=== PATIENT | male | born 1960 | race Caucasian/White ===

== ENCOUNTER 2022-03-18 13:21 | Emergency (ER) | payer BC, SELFPAY ==
[2022-03-18 13:24] VITALS: BP 169/88; PULSE 57; RESP 16; TEMP 36.5; O2SAT 98
--- NOTE | 2022-03-18 13:27 | ED.GENADUL_ITS ---
Discharge Plan Disposition Patient Disposition: HOME Condition: Improving Discharge Details Clinical Impression: Acute bronchitis, History of COPD Primary Care Provider: Payal,Local ED Provider: Christina Willard Home Meds and New Rx's Prescriptions: New prednisone 50 mg tablet 50 mg PO DAILY 5 Days Qty: 5 0RF Continued albuterol 90 mcg/actuation Aerosol 1 INHALATION PRN PRN amlodipine 5 mg Tablet 5 mg PO DAILY Discharge Instructions Instructions: Acute Bronchitis (ED), COPD (Chronic Obstructive Pulmonary Disease) (ED) Additional Instructions: Your symptoms could be due to a viral infection called bronchitis or could be due to an exacerbation of your chronic obstructive pulmonary disease. These are treated similarly with steroids and an albuterol inhaler to use as needed and directed for shortness of breath, cough or wheezing. A prescription for steroids has been sent electronically to your pharmacy to take as directed until finished. 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 Follow-up with your primary care doctor in 1 week. Return to the emergency department with any worsening or new concerning symptoms such as fever, worsening shortness of breath or any other concerns. Referrals: Isabella Ibarra MD [ [facility] STAFF PHYSICIAN] - Discharge Data Discharge Physician: Christina Willard Medical Decision Making 61-year-old male with a history of COPD and former smoker presents for cough, wheezing and shortness of breath today. Oxygen saturation 96 to 98% on room air. Patient is speaking in full sentences and appears comfortable and nontoxic without signs of respiratory distress. He has scattered wheezing throughout. Normal oropharynx. Patient presentation appears most likely consistent with acute bronchitis versus acute COPD exacerbation. Do not indication for lab work or imaging at this time. Patient states he is only here for a nebulizer treatment and does not want labs or imaging. We will give a dose of oral steroids. Patient reassessed after DuoNeb and states he feels significantly better and would like to go home. Oxygen saturation remains within normal limits. He is speaking in full sentences and demonstrates no signs of respiratory distress. A prescription for steroids sent electronically to his pharmacy. He was given an albuterol inhaler to go. He states he has daily inhaler prescription pickup tomorrow from his pharmacy. Patient given pulmonology follow-up information if needed. Advised to follow up with the primary care doctor for re-evaluation. Usual and customary return precautions given prior to discharge. Medical Records Medical records reviewed: Yes I reviewed the patient's medical records. HPI General Mode of arrival: ambulatory . Date/Time Provider Initiated Documentation: 03/18/22 13:22 . Limitations to Documentation: no limitations . Information obtained by: patient . HPI Narrative: Patient is a 61-year-old male with a history of COPD and former tobacco smoker presents with cough, shortness of breath and wheezing today. Patient states his symptoms are usually resolved with nebulizer treatment in the emergency department. Patient states he was on his wait in [place] in [place] for a breathing treatment. He states he uses 2 inhalers for his COPD daily but is unsure of the names. He states he has never seen a swatch paster. He states he is fully vaccinated for COVID and denies any recent known exposure to coronavirus. He denies fever, chest pain, sore throat, loss of sense of smell or taste, vomiting or diarrhea. Related Data Home Medications Medication Instructions Recorded Confirmed albuterol 90 mcg/actuation aerosol 1 inhalation PRN PRN 03/18/22 inhaler amlodipine 5 mg tablet 5 mg PO DAILY 03/18/22 03/18/22 prednisone 50 mg tablet 50 mg PO DAILY 5 days #5 tabs 03/18/22 Previous Rx's Medication Instructions Recorded prednisone 50 mg tablet 50 mg PO DAILY 5 days #5 tabs 03/18/22 Allergies Allergy/AdvReac Type Severity Reaction Status Date / Time No Known Allergies Allergy Unverified 03/18/22 13:31 General Stated Complaint: SOB CHAUNCEY: 3 Review of Systems All systems reviewed & are unremarkable except as noted in HPI and below Constitutional Constitutional: Denies chills, Denies excessive sweating, Denies fatigue, Denies fever(s), Denies weakness and Denies weight loss Eyes Eyes: Reports system reviewed and no additional complaints, except as documented and Denies blurry vision ENT Ears, Nose, Mouth, and Throat: Denies vertigo, Denies dizziness, Denies otalgia, Denies nasal congestion, Denies sore throat and Denies throat swelling Cardiovascular Cardiovascular: Denies chest pain, Denies syncope, Denies rapid heart rate and Reports dyspnea Respiratory Respiratory: Denies chest congestion, Reports cough, Denies pain on inspiration and Reports dyspnea Gastrointestinal Gastrointestinal: Denies abdominal pain, Denies diarrhea and Denies vomiting Genitourinary Genitourinary: Denies hematuria, Denies dysuria and Denies flank pain Musculoskeletal Musculoskeletal: Denies back pain and Denies joint swelling Integumentary/Breasts Skin/Breast: Denies lesions and Denies rash Neurologic Neurologic: Denies behavioral changes, Denies confusion, Denies vertigo, Denies dizziness, Denies syncope, Denies localized weakness and Denies weakness Psychiatric Psychiatric: Denies behavioral changes, Denies confusion and Denies depression Endocrine Endocrine: Denies excessive sweating and Denies fatigue Hematologic/Lymphatic Hematologic/Lymphatic: Denies easy bruising and Denies lymphadenopathy Allergic/Immunologic Allergic/Immunologic: Denies throat swelling PFSH All Active Problems (Updated 03/18/22 @ 14:10 by Christina Willard DO) Acute bronchitis (Acute) History of COPD (Acute) Medical History (Updated 03/18/22 @ 14:10 by Christina Willard DO) COPD (chronic obstructive pulmonary disease) HTN (hypertension) Kidney stones Surgical History (Updated 03/18/22 @ 13:54 by Christina Willard DO) Hx of lithotripsy Social History Smoking/Tobacco Use Status: Former Tobacco Use Smoking risk assessment performed?: Yes Alcohol Intake: former Substance use type: does not use Do you feel safe at home: Yes Do you feel safe in your relationship?: Yes Exam Const General: cooperative and healthy appearing Orientation: alert, awake and oriented x3 HENMT Head: normal to inspection Ears: hearing grossly normal bilaterally, external ears normal and TM's normal bilaterally General nose exam: external nose normal Face and sinus: normal facial exam Mouth: oral mucosae normal Teeth and gingiva: dentition normal Throat: posterior oropharynx normal Eyes General: appearance normal, both eyes and all related structures Eyelids: eyelids normal Pupils: PERRL EOM: EOM intact bilaterally Neck Neck: normal visual inspection Lymphatic: no lymphadenopathy noted Chest Chest: normal inspection of the chest Resp Effort & Inspection: normal respiratory effort and able to speak in complete sentences Auscultation: wheezes scattered wheezes Cardio Rate: regular rate Rhythm: regular rhythm GI Inspection: normal to inspection Palpation: soft, not firm, no guarding, no hepatosplenomegaly, no masses and nontender Auscultation: normal bowel sounds Back/Spine/Pelvis Back: no CVA tenderness Skin General skin exam: no rashes or lesions noted Neuro General: patient alert and patient awake Cognition: normal cognition Speech: speech normal Gait: normal gait Motor: muscle tone normal throughout Sensory Exam: no sensory deficits noted Extrem General: normal to inspection, full ROM and capillary refill normal Psych Appearance: grossly normal Mental Status: mental status grossly normal Speech and Movement: speech and movement normal Affect: normal affect Thought Process: normal
[2022-03-18 13:55] VITALS: RESP 18
[2022-03-18] MEDS: predniSONE 20 MG TAB 60 MG PO (13:55)
[2022-03-18] MEDS: Albuterol/Ipratropium 3 ML UPD VIAL UPD (13:55)
== END 2022-03-18 14:14 | disposition home or self-care (01) ==
LOC: ER 14:31
PROVIDERS: Emergency Provider Physician Assistant
DX: J20.9 Acute bronchitis, unspecified (principal); J44.0 Chronic obstructive pulmonary disease with (acute) lower respiratory infection; I10 Essential (primary) hypertension; Z87.891 Personal history of nicotine dependence
CPT/HCPCS: 94640; 99283; 99284; J7512; J7620

== ENCOUNTER 2022-09-27 16:58 | Outpatient (REF) | payer BC, SELFPAY ==
[2022-09-27 18:45] LABS: ALT 25 U/L (16-63); AST 18 U/L (15-37); Albumin 4.1 g/dL (3.4-5.0); Alkaline Phosphatase 83 U/L (46-116); Anion Gap 6.3 mmol/L (3-11); BUN 15 mg/dL (7-18); Bilirubin, Total 0.6 mg/dL (0.2-1.0); CO2 28.7 mmol/L (21.0-32.0); Calcium 9.3 mg/dL (8.5-10.1); Calculated LDL 152 mg/dL (<100); Chloride 104 mmol/L (98-107); Cholesterol 223 mg/dL (<200); Estimated GFR 86.16 (mL/min/1.73m2); Glucose 86 mg/dL (74-106); HDL Cholesterol 56 mg/dL (40-60); Potassium 4.1 mmol/L (3.5-5.1); Sodium 139 mmol/L (136-145); Total Protein 7.2 g/dL (6.4-8.2); Triglyceride 78 mg/dL (<150)
[2022-09-28 20:01] LABS: PSA, Screening 0.5 ng/mL (<=4.5)
== END 2022-09-27 16:59 | disposition home or self-care (01) ==
LOC: NCHCN 16:58
PROVIDERS: PCP Nurse Practitioner Family; Visit Provider Nurse Practitioner Family
DX: E78.5 Hyperlipidemia, unspecified (principal); E55.9 Vitamin D deficiency, unspecified; I10 Essential (primary) hypertension; Z00.00 Encounter for general adult medical examination without abnormal findings; Z12.5 Encounter for screening for malignant neoplasm of prostate
CPT/HCPCS: 80053; 80061; 82306; 84153

== ENCOUNTER 2022-12-12 08:31 | Day surgery (SDC) | payer BC, SELFPAY ==
--- NOTE | 2022-12-12 06:43 | W.PM.OP ---
Date of service: 12/12/22 Time of Service: 11:21 Operative Note Operative Note DATE OF PROCEDURE: 12/12/22 PRE-OP DIAGNOSIS: umbilical hernia same PROCEDURE: Umbilical hernia repair with mesh SURGEON: Saida Correia CONSUMER RECRUITER: Gina Wolfe ANESTHESIA TYPE: Local By Surgeon and General LMA/ETT Refer to Anesthesia Record COMPLICATIONS: None Patient was transported to: PACU Patient's condition: stable Indications: Mr. Gtz is a pleasant 62-year-old gentleman with an umbilical hernia as well as most likely a supraumbilical hernia.? We discussed doing a small incision above the umbilicus and then repairing both with 1 piece of mesh.? I reviewed the surgery with him using a pamphlet with pictures.? We went over the possible complications and as well as the recurrence rate of 3%.? We reviewed importance of light duty for 4 weeks after surgery.? The light duty includes no lifting more than 10 pounds.? I also reviewed with him that once the 4 weeks are up he should not go from lifting 10 pounds to 100 pounds but slowly increased the weight over the next week or 2.? Risks, benefits and complications have been reviewed. Complications include but are not limited to bleeding, pain, infection, injury to underlying structures like bowel and adverse reaction to the medication.? Questions were entertained and answered to their satisfaction and they wished to proceed. No guarantees were given or implied. Findings: small 1.5 cm x 1.5 cm hernia with some incarcerated fat No hernia above the umbilicus Procedure Description: After informed consent was obtained the patient was taken to the operating room and placed in a supine position. Monitors and SCDs were applied and a timeout was done. The patient's name, date of , procedure type, procedure site, allergies to medications, preoperative antibiotic, and DVT prophylaxis were all reviewed. Fire risk was assessed. The patient was placed under general without Endotracheal tube/LMA. once comfortable 0.5% Bupivacaine was injected into the dermis just above the umbilicus. An incision was made with a 15 blade above the umbilicus. Dissection was done with cautery through the subcutaneous tissues and through the umbilical stalk down to the fascia. The hernia defect was identified. There was fat incarcerated in it. The fat was trimmed. The fascial edges were then identified and grasped with cockers. The hernia defect measured 1.5 x 1.5 cm. I placed my finger under the fascia. There were no adhesiions and no other hernia defects above or below. A 4.6 cm round mesh was then placed under the peritoneum and secured in 4 quarters with 2-0 Proline. Once the mesh was secured the tissues were irrigated with some normal saline. No bleeding was identified. The fascia was closed over the mesh with 0 vicryl running suture. 2-0 Vicryl was used to secure the umbilicus down to the fascia. The dermis was re-approximated with a running 4-0 Vicryl. The skin was cleaned and dried and dermabond was applied. The patient was woken up and taken back to recovery in stable condition. There were no immediate complications. Sponge, instrument and needle counts were correct at the end of the case x2.
--- NOTE | 2022-12-12 06:45 | W.PM.DSUDISC ---
Date of service: 12/12/22 Time of Service: 11:38 Discharge Plan Disposition Patient Disposition: Home Condition: Stable Discharge Details Reason For Visit: umbilical hernia, s/p repair Attending Provider: Saida Correia Primary Care Provider: Radha Frazier Home Meds and New Rx's Prescriptions: New ibuprofen 600 mg tablet 600 mg PO Q6H PRNQty: 30 0RF oxycodone 5 mg tablet 5 mg PO Q6H PRNQty: 14 0RF Continued Fish Oil 100-160-1,000 mg capsule 1 cap PO DAILY One-A-Day Men's 50 Plus 400-20-370 mcg tablet 1 tab PO DAILY ascorbic acid (vitamin C) 1,000 mg capsule 1 g PO DAILY ergocalciferol (vitamin D2) 1,250 mcg (50,000 unit) capsule 1,250 mcg PO QWEEK fluticasone propionate 110 mcg/actuation HFA aerosol inhaler 1 puff inhalation BID albuterol 90 mcg/actuation Aerosol 90 mcg INHALATION PRN PRN amlodipine 5 mg Tablet 5 mg PO DAILY famotidine 40 mg tablet 40 mg PO HS Discharge Instructions Instructions: Umbilical Hernia Repair (DC) Additional Instructions: Activity at Home after surgery: 1. Make sure you walk outside at least 4 times per day 2. You should be able to climb a flight of stairs 3. No driving while in pain or taking pain medications 4. No strenuous activity or heavy lifting (no more then 10 lb) for 4 weeks Diet, Nutrition, & wound healin. Avoid alcohol until after you are recovered from your surgery 2. Make sure to eat plenty of lean protein (meat, fish, eggs, cottage cheese, beans) 3. Eat a variety of fruits and vegetables. Eat plenty of high fiber foods to avoid constipation. 4. Drink plenty of liquids to stay hydrated and avoid constipation Pain Medications: 1. Tylenol 650mg every 6 hours as needed and Ibuprofen 600 mg every 6 hours as needed. You may alternate between the 2 medications every 3 hours 2. If a narcotic has been prescribed take as directed only for breakthrough pain For Constipation: 1. Take Milk of Magnesia or MiraLax as needed for constipation Other: 1. You may shower daily. Do not scrub the incisions 2. Do not soak the incisions for 1 week 3. You may alternate ice and heat as needed for pain and swelling Wound Care: 1. Keep the incisions clean and dry Please call our office if you develop: 1. Fevers >101.5 2. Nausea or Vomiting 3. Worsening pain 4. Redness and thick discharge from the wounds If after hours please call the Hospital at and ask to speak to the on-call surgeon Referrals: Saida Correia MD [ [facility] STAFF PHYSICIAN] - 12/25/22 2:30 pm Activity:: as above Remove Dressings/Wound Care:: Do Not Remove Shower/Bathe:: 24 hours Diet:: As Tolerated Discharge Orders Discharge Orders: Discharge Order (Routine); Ordered 12/12/22 Ordered By: Saida Correia DS: Diagnosis Discharge Diagnosis (1) Umbilical hernia: Status: Acute
[2022-12-12 08:51] VITALS: BP 136/84; PULSE 69; RESP 18; TEMP 36.7; O2SAT 97
[2022-12-12] MEDS: Lactated Ringers 1,000 ML 80 ML IV (09:15)
[2022-12-12] MEDS: Acetaminophen 500 MG TAB 1000 MG PO (09:32)
[2022-12-12] MEDS: Gabapentin 300 MG CAP 600 MG PO (09:32)
[2022-12-12] MEDS: Celecoxib 200 MG CAP PO (09:33)
--- NOTE | 2022-12-12 10:11 | W.ANESPRE ---
General Info Date of Service Date Performed: 12/12/22 Height: 5 ft 6 in Weight: 80.649 kg Body Mass Index (BMI): 28.7 Surgical Procedure: Operation Date: 12/12/22 10:25 Proposed Procedure Side Surgeon p Herniorrhaphy Umbilical w/Mesh Saida Correia MD Meds Allergies and Home Medications Allergies Allergy/AdvReac Type Severity Reaction Status Date / Time No Known Allergies Allergy Unverified 12/11/22 10:45 Home Medication Medication Instructions Recorded albuterol 90 mcg/actuation aerosol 90 mcg inhalation PRN PRN 03/18/22 inhaler amlodipine 5 mg tablet 5 mg PO DAILY 03/18/22 ascorbic acid (vitamin C) 1,000 mg 1 g PO DAILY 11/29/22 capsule ergocalciferol (vitamin D2) 1,250 1,250 mcg PO QWEEK 11/29/22 mcg (50,000 unit) capsule fluticasone propionate 110 1 puff inhalation BID 11/29/22 mcg/actuation HFA aerosol inhaler [id number] acid-vit 1 tab PO DAILY 11/29/22 K-lycop 400 mcg-20 mcg-370 mcg tablet (One-A-Day Men's 50 Plus) omega 9-ear-tqv-fish oil 100 1 cap PO DAILY 11/29/22 mg-160 mg-1,000 mg capsule (Fish Oil) famotidine 40 mg tablet 40 mg PO HS 12/11/22 Current Visit Medications: Current Medications Generic Name Dose Route Start Last Admin Trade Name Freq PRN Reason Stop Dose Admin Acetaminophen 1,000 mg 12/12/22 06:00 12/12/22 09:32 Acetaminophen 500 Mg Tab PO 01/10/23 23:59 1,000 mg PREOP ROSI Administration Celecoxib 200 mg 12/12/22 06:00 12/12/22 09:33 Celecoxib 200 Mg Cap PO 01/10/23 23:59 200 mg PREOP ROSI Administration Gabapentin 600 mg 12/12/22 06:00 12/12/22 09:32 Gabapentin 300 Mg Cap PO 01/10/23 23:59 600 mg PREOP ROSI Administration Ringer's Solution 1,000 mls @ 80 mls/hr 12/12/22 06:00 12/12/22 09:15 IV 01/10/23 23:59 80 mls/hr INFUSION ROSI Administration Cefazolin Sodium/Dextrose 2 gm in 50 mls @ 100 mls/hr 12/12/22 06:00 Ancef Duplex IVPB 01/10/23 23:59 PREOP ROIS Ondansetron HCl 4 mg/ Sodium 52 mls @ 200 mls/hr 12/12/22 06:48 Chloride IVPB Q6H PRN PRN IV Miscellaneous Supplies 1 each 12/12/22 06:00 Iv Access IV 01/10/23 23:59 DIRECTED ROSI Oxycodone HCl 5 mg 12/12/22 06:48 Oxycodone 5 Mg Tab PO Q3H PRN PRN Pain Sodium Chloride 0 ml 12/12/22 06:00 Normal Saline Flush 10 Ml Syr IV 01/10/23 23:59 PRN PRN Sodium Chloride 0 ml 12/12/22 06:00 Normal Saline 10 Ml Vial IJ 01/10/23 23:59 DIRECTED PRN Sterile Water 0 ml 12/12/22 06:00 Water,Injection,Sterile 10 Ml Vial IJ 01/10/23 23:59 DIRECTED PRN PFSH Active Problems Active Problems: Problem Status Onset Code Umbilical hernia K42.9 Aortic dilatation I77.819 Renal cyst, left N28.1 Medical History Medical History Abdominal or pelvic swelling, mass or lump, periumbilic COPD (chronic obstructive pulmonary disease) Dyslipidemia Hearing loss HTN (hypertension) Kidney stones RUQ pain Smoker Vitamin D deficiency Surgical History Surgical History History of tonsillectomy Hx of lithotripsy Tobacco Smoking/Tobacco Use Status: Former Tobacco Use Alcohol Alcohol Intake: former Substance Use Substance use type: does not use Vital Signs and Lab Results Vital Signs Most Recent Vital Signs in EMR: Most Recent Vital Signs Temp Pulse Resp BP Pulse Ox 36.4 C L 96 H 18 130/91 H 99 12/12/22 10:04 12/12/22 10:04 12/12/22 10:04 12/12/22 10:04 12/12/22 10:04 Lab Results Blood Type / Crossmatch: No Data to Display Complete Blood Count: No Data to Display Complete Metabolic Panel: No Data to Display Liver Function Panel: No Data to Display Coagulation Panel: No Data to Display Cardiac Panel: No Data to Display Arterial Blood Gas: No Data to Display Venous Blood Gas: No Data to Display Pancreas Panel: No Data to Display Thyroid Panel: No Data to Display Infectious Disease: No Data to Display Blood Cultures: No Data to Display Toxicology Panel: No Data to Display Anesthesia Assessment and Plan Anesthesia History Personal History: No History of Anesthesia Complications Family History: No Family History of Anesthesia Complications Exercise Tolerance Exercise Tolerance: Metabolic Equivalents>4 Pertinent Negatives Pertinent Negatives: No Symptoms of GERD, No Major Cardiovascular Symptoms or Complaints and No Major Pulmonary Symptoms or Complaints Cardiac & Pulmonary Exam Cardiac Exam: Normal S1/S2 Heart Sounds Pulmonary Exam: Clear Bilateral Breath Sounds Implantable Cardiac Device Does patient have a Pacemaker or an ICD?: No Airway Exam Known Difficult Airway: No Mallampati Class: 2 Mouth Opening: Normal (> 3cm) Thyromental Distance: Greater than 3 cm Facial Hair: Full Louise (Partial) Neck Range of Motion: Full ROM Neck Circumference: Normal Teeth Condition: Generalized Poor Dentition and Removable Dentures/Plates Upper ASA Classification ASA Score: ASA 2 Emergency Case?: No NPO Status NPO Status: NPO Clears >2 hours, Solids >8 hours Anesthesia Plan Resuscitation Status: Full Code Anesthesia Technique: General Anesthesia Airway Planned: Natural Airway Monitors Used: Standard Monitors
[2022-12-12 10:12] VITALS: BMI 28.7
--- NOTE | 2022-12-12 10:22 | W.PM.PROGNOT ---
Date of Service Date of service: 12/12/22 Time of Service: 10:22 Assessment and Plan Assessment and plan (1) Umbilical hernia: Status: Acute Assessment and plan: Alberto is here for umbilical hernia repair with mesh. Again we reviewed the risks, benefits and complications of the procedure. Risks, benefits and complications have been reviewed. Complications include but are not limited to bleeding, pain, infection, injury to underlying structures like bowel and adverse reaction to the medication. Questions were entertained and answered to their satisfaction and they wished to proceed. No guarantees were given or implied. He understands the risks and benefits. Questions were entertained and answered to his satisfaction. He wishes to proceed with umbilical hernia repair with mesh. Subjective Subjective Interval history since last seen: I am seeing Alberto in same-day surgery prior to his surgery. He is doing well he has not had any upper respiratory infections. He has not had any other new medical issues. We again reviewed his surgery as well as the postop care and possible complications. He has no questions at this time and wishes to proceed with umbilical hernia repair. Exam Const General: comfortable and no acute distress Orientation: alert and oriented x3 HENMT Head: normocephalic and atraumatic Resp Effort & Inspection: normal respiratory effort Auscultation: clear to auscultation bilaterally Cardio Rate: regular rate Rhythm: regular rhythm GI Inspection: normal to inspection Palpation: soft, no hepatosplenomegaly, hernia umbilical and nontender Objective Last Vital Signs Temp 98.1 F 12/12/22 08:51 Pulse 69 12/12/22 08:51 Resp 18 12/12/22 08:51 BP 136/84 12/12/22 08:51 Pulse Ox 97 12/12/22 08:51 Time Spent with Patient Time Spent with Patient: <25 minutes Time was spent: counseling the patient
[2022-12-12] MEDS: ceFAZolin 2 GM/50 ML BAG IVPB (10:35)
[2022-12-12] MEDS: Bupivacaine 0.25% Pres-Free 30 ML VIAL (11:07)
[2022-12-12 11:21] VITALS: BP 105/66; PULSE 73; RESP 18; TEMP 36.5; O2SAT 95
--- NOTE | 2022-12-12 11:40 | W.PM.PROGNOT ---
Date of Service Date of service: 12/12/22 Time of Service: 11:40 Assessment and Plan Assessment and plan (1) Umbilical hernia: Status: Acute (2) History of ventral hernia repair: Subjective Subjective Interval history since last seen: Alberto is being seen in same-day surgery after his umbilical hernia repair. He is doing well. He is awake and drinking fluids. He complains of some pain if he moves or laughs. Discussed surgery with him as well as findings. Reviewed postoperative care as well as limits on lifting. I will send in a prescription for oxycodone 5 mg every 6 hours as needed for the next couple of days. He should also be using Tylenol and ibuprofen. I did send in a prescription for 600 mg of ibuprofen to use every 6 hours as needed for a few days. Exam Const General: comfortable and no acute distress Orientation: alert, awake and oriented x3 Resp Effort & Inspection: normal respiratory effort GI Inspection: incision (c/d/i) Palpation: soft, no hepatosplenomegaly and tender (appropriately tender around the incision) Objective Last Vital Signs Temp 98.1 F 12/12/22 08:51 Pulse 69 12/12/22 08:51 Resp 18 12/12/22 08:51 BP 136/84 12/12/22 08:51 Pulse Ox 97 12/12/22 08:51 Time Spent with Patient Time Spent with Patient: <25 minutes Time was spent: counseling the patient
--- NOTE | 2022-12-12 11:41 | W.ANESPOSTOP ---
Postoperative Evaluation Date, Time and Location Date Performed: 12/12/22 Time Performed: 11:42 Patient Location: Day Surgery Unit Vital Signs Most Recent Imported Vital Signs: Most Recent Vital Signs Temp Pulse Resp BP Pulse Ox 36.7 C 69 18 136/84 97 12/12/22 08:51 12/12/22 08:51 12/12/22 08:51 12/12/22 08:51 12/12/22 08:51 Most Recent Manually Entered Vital Signs: Adult Blood Pressure: 105/66 Heart Rate: 73 Respirations: 18 Oxygen Saturation (%): 95 Temperature (C): 36.5 C Pain Score (0-10 Scale): 3 Assessment Mental Status: Awake (Alert & Oriented to Patient Baseline) Airway and Respiratory Function: Patent airway with normal (patient baseline) respiratory exam Cardiovascular Function: Hemodynamically Stable Hydration Status: Adequately Hydrated Nausea & Vomiting: No Nausea or Vomiting Pain: Pt. Denies Any Pain Peripheral Nerve Block: Patient did not receive a nerve block
[2022-12-12 11:44] VITALS: BP 105/66; PULSE 73; RESP 18; TEMPC 36.5; O2SAT 95
[2022-12-12 11:55] VITALS: BP 113/65; PULSE 83; RESP 18; TEMP 36.6; O2SAT 96
[2022-12-12] MEDS: oxyCODONE 5 MG TAB PO (12:13)
[2022-12-12 12:30] VITALS: BP 128/76; PULSE 80; RESP 18; TEMP 36.5; O2SAT 96
== END 2022-12-12 12:58 | disposition home or self-care (01) ==
PROVIDERS: PCP Nurse Practitioner Family; Visit Provider Surgery
PROC: (CPT 49592; principal; 2022-12-12 10:15)
DX: K42.9 Umbilical hernia without obstruction or gangrene (principal)
CPT/HCPCS: 49592; C1781; J0690

== ENCOUNTER 2023-01-12 17:15 | Outpatient (REF) | payer BC, SELFPAY ==
[2023-01-12 17:25] LABS: Abs Immature Grans 0.02 10^3/uL (0.0-0.06); Absolute Basophil Count 0.12 10^3/uL (0.0-0.2); Absolute Eosinophil Count 0.43 10^3/uL (0.0-0.7); Absolute Lymphocyte Count 2.64 10^3/uL (1.2-3.4); Absolute Monocyte Count 0.82 10^3/uL (0.1-0.8); Absolute Neutrophil Count 5.78 10^3/uL (1.2-6.7); Basophils % 1.2; Eosinophils % 4.4; HCT 42.1 % (40.0-50.0); HGB 14.7 g/dL (13.5-17.5); Immature Grans % 0.2; Lymphocytes % 26.9; MCH 30.7 pg (27.0-33.0); MCHC 34.9 % (32.0-36.0); MCV 88 fL (80-95); MPV 9.8 fL (8.0-11.0); Monocytes % 8.4; Neutrophils % 58.9; Platelet Count 317 10^3/uL (130-400); RBC 4.79 10^6/uL (4.36-5.78); RDW-SD 38.7 fL; WBC 9.81 10^3/uL (4.4-10.8)
[2023-01-12 17:34] LABS: ALT 25 U/L (16-63); AST 14 U/L (15-37); Albumin 4.3 g/dL (3.4-5.0); Alkaline Phosphatase 89 U/L (46-116); BUN 12 mg/dL (7-18); Bilirubin, Total 0.6 mg/dL (0.2-1.0); CREATININE 0.8 mg/dL (0.70-1.30); Calcium 9.3 mg/dL (8.5-10.1); Chloride 105 mmol/L (98-107); Estimated GFR 101.32 (mL/min/1.73m2); Glucose 82 mg/dL (74-106); Potassium 4.8 mmol/L (3.5-5.1); Sodium 140 mmol/L (136-145); Total Protein 7.1 g/dL (6.4-8.2)
== END 2023-01-12 17:16 | disposition home or self-care (01) ==
LOC: LBN 17:15
PROVIDERS: PCP Nurse Practitioner Family; Visit Provider Nurse Practitioner Family
DX: R42 Dizziness and giddiness (principal)
CPT/HCPCS: 80053; 85025

== ENCOUNTER 2023-10-04 19:33 | Outpatient (REF) | payer BC, SELFPAY ==
[2023-10-04 19:23] LABS: Abs Immature Grans 0.02 10^3/uL (0.0-0.06); Absolute Basophil Count 0.14 10^3/uL (0.0-0.2); Absolute Eosinophil Count 0.43 10^3/uL (0.0-0.7); Absolute Lymphocyte Count 2.49 10^3/uL (1.2-3.4); Absolute Monocyte Count 0.52 10^3/uL (0.1-0.8); Basophils % 1.8; Eosinophils % 5.4; HCT 39.3 % (40.0-50.0); HGB 14.2 g/dL (13.5-17.5); Immature Grans % 0.3; Lymphocytes % 31.5; MCH 30.9 pg (27.0-33.0); MCHC 36.1 % (32.0-36.0); MCV 86 fL (80-95); MPV 9.6 fL (8.0-11.0); Monocytes % 6.6; Neutrophils % 54.4; Platelet Count 470 10^3/uL (130-400); RBC 4.59 10^6/uL (4.36-5.78); RDW 11.6 % (11.8-14.1); RDW-SD 35.8 fL
[2023-10-04 19:46] LABS: Hemoglobin A1C 5.3 % (<5.7)
--- OUTSIDE RECORDS SUMMARY | 2023-10-04 19:50 | XMS_ITS | Continuity of Care Document ---
Author Name Unknown Organization [facility] Occupationa l Health Address [address] [place] [address] Encounter [facility] NBR [id number] Date(s): 10/31/22 - 10/31/22 [facility] Occupational Health [address] [place] [address]- Encounter Diagnosis Encounter for examination required by Department of Transportation (DOT) (Discharge Diagnosis) - 10/31/22 Discharge Disposition: Home or Self Care Attending Physician: Gordo Siu. CASPER Physician Outpatient Note * Gordo Siu. PA: PERFORM Event Display: Office Clinic Note Physician Authored Date: [id number] REYES BRANDT S :1960 Age:62 years Sex:Male Visit Date:10/31/2022 Chief Complaint DOT exam Assessment/Plan 1.??Encounter for examination required by Department of Transportation (DOT)??Z02.89 Patient's blood pressure elevated. ??He meets qualifications for 3-month DOT card. ??He takes his??blood pressure medication randomly throughout the day. ??He feels he may have missed it over the past couple of days.?? At this time I recommend he take his blood pressure medicine at every??3-day at the same time.?? Check blood pressure at home. ??Follow-up with primary provider return in 3 months. Problem List/Past Medical History Ongoing No qualifying data Historical No qualifying data Medications No active medications Allergies No active allergies Electronically Signed on 10/31/22 01:56 PM Gordo SHIRLEY
[2023-10-04 20:01] LABS: ALT 20 U/L (16-63); AST 18 U/L (15-37); Albumin 3.8 g/dL (3.4-5.0); Alkaline Phosphatase 94 U/L (46-116); Anion Gap 8.6 mmol/L (3-11); BUN 10 mg/dL (7-18); Bilirubin, Total 0.3 mg/dL (0.2-1.0); CO2 26.4 mmol/L (21.0-32.0); CREATININE 0.8 mg/dL (0.70-1.30); Calcium 8.9 mg/dL (8.5-10.1); Calculated LDL 117 mg/dL (<100); Chloride 103 mmol/L (98-107); Cholesterol 182 mg/dL (<200); Estimated GFR 100.69 (mL/min/1.73m2); Glucose 94 mg/dL (74-106); HDL Cholesterol 50 mg/dL (40-60); Potassium 4.2 mmol/L (3.5-5.1); Sodium 138 mmol/L (136-145); Total Protein 7.6 g/dL (6.4-8.2); Triglyceride 77 mg/dL (<150)
== END 2023-10-04 19:34 | disposition home or self-care (01) ==
LOC: NCHCN 19:33
PROVIDERS: PCP Nurse Practitioner Family; Visit Provider Nurse Practitioner Family
DX: Z00.00 Encounter for general adult medical examination without abnormal findings (principal); Z13.220 Encounter for screening for lipoid disorders; Z13.1 Encounter for screening for diabetes mellitus; Z13.228 Encounter for screening for other metabolic disorders; Z13.0 Encounter for screening for diseases of the blood and blood-forming organs and certain disorders involving the immune mechanism
CPT/HCPCS: 80053; 80061; 83036; 85025

== ENCOUNTER 2023-12-17 14:11 | Emergency (ER) | payer BC, SELFPAY ==
[2023-12-17] VITALS (16 sets, daily range): BP systolic 131–162; BP diastolic 73–92; PULSE 54–70; RESP 11–20; TEMP 36.2; O2SAT 99
--- NOTE | 2023-12-17 14:00 | RT.EKG_ITS ---
APPROVED REPORT Exam: Resting ECG Reason for Exam: Chest pain Patient Location: E HR:64 bpm ECG Measurements Heart Rate 64 AXIS ME 169 P 37 QRSd 106 QRS 24 QT 409 T 15 QTc 423 Conclusion Sinus rhythm...normal P axis, V-rate 60- 99 sinus rhtyhm, normal axis, normal intervals, consider st depressions III aVF, with t wave inversion I II
--- NOTE | 2023-12-17 14:30 | W.ED.GENAD ---
Discharge Plan Disposition Patient Disposition: Home Condition: Stable Discharge Details Clinical Impression: Chest pain of uncertain etiology Primary Care Provider: Radha Frazier ED Provider: Holden Bob Home Meds and New Rx's Prescriptions: Continued Fish Oil 100-160-1,000 mg capsule 1 cap PO DAILY One-A-Day Men's 50 Plus(vit K) 400-20-370 mcg tablet 1 tab PO DAILY ascorbic acid (vitamin C) 1,000 mg capsule 1 g PO DAILY ergocalciferol (vitamin D2) 1,250 mcg (50,000 unit) capsule 1,250 mcg PO QWEEK fluticasone propionate 110 mcg/actuation HFA aerosol inhaler 1 puff inhalation BID famotidine 40 mg tablet 40 mg PO HS Qty: 90 4RF albuterol 90 mcg/actuation Aerosol 90 mcg INHALATION PRN PRN amlodipine 5 mg tablet 10 mg PO DAILY losartan 50 mg tablet Patient Comments: TAKE ONE TABLET BY MOUTH EVERY DAY cetirizine 10 mg tablet Patient Comments: TAKE 1 TABLET BY MOUTH ONCE A DAY buprenorphine-naloxone 8-2 mg film Patient Comments: PLACE TWO FILMS UNDER THE TONGUE EVERY DAY Discharge Instructions Instructions: Chest Pain (ED) Additional Instructions: You were seen in the emergency department for your chest pain with mild exertional symptoms. If you do not already please start taking one 81 mg qgaq-xso-awlckos aspirin once per day. There was no damage to your heart from what we can tell on her laboratory studies and her chest x-ray and EKG show no signs of major cardiac event but I do think that you need to be seen by cardiology to have some baseline cardio studies done like a stress test and echocardiogram. You are at low risk to have an adverse cardiac event by being discharged but you need to return to the emergency department should he have any worsening to your condition. Please cease all physical activity with any onset of even mild chest pain. Please make lifestyle changes so that you do not need to perform exertion as a cause of chest pain. I am referring you to our cardiology service who can get you scheduled for an echocardiogram and stress test, you may need to contact your primary care provider as well. Referrals: [facility] [Provider Group] Radha Frazier [Primary Care Provider] - HPI General Date/Time Provider Initiated Documentation: 12/17/23 14:11. 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 He is handling large straps and walking around and gets chest pain. This has been going on for days to weeks. He denies cardiac history. Quality described as chest pressure, sweating, and pain going down the backs of both his arms, no radiation to shortness of breath, syncope, nausea, headache, visual changes. Severity is described as mild to moderate. Palliating factors include resolves quickly with cessation of activity, within 5-10 minutes of getting back in his truck. Provoking factors include activity. Events leading up to the incident/Associated Symptoms: Patient has not had baseline cardiology studies performed, is a former smoker, quit years ago. Patient not anticoagulated. Related Data Home Medications Medication Instructions Recorded Confirmed albuterol 90 mcg/actuation aerosol 90 mcg inhalation PRN PRN 03/18/22 12/17/23 inhaler ascorbic acid (vitamin C) 1,000 mg 1 g PO DAILY 11/29/22 12/17/23 capsule ergocalciferol (vitamin D2) 1,250 1,250 mcg PO QWEEK 11/29/22 12/17/23 mcg (50,000 unit) capsule fluticasone propionate 110 1 puff inhalation BID 11/29/22 12/17/23 mcg/actuation HFA aerosol inhaler yfhkwdhzxkhn-ggc-fsgei acid-vit 1 tab PO DAILY 11/29/22 12/17/23 K-lycop 400 mcg-20 mcg-370 mcg tablet (One-A-Day Men's 50 Plus (with vitamin K)) omega 7-env-naa-fish oil 100 1 cap PO DAILY 11/29/22 12/17/23 mg-160 mg-1,000 mg capsule (Fish Oil) amlodipine 5 mg tablet 10 mg PO DAILY 04/08/23 12/17/23 famotidine 40 mg tablet 40 mg PO HS #90 tabs 04/09/23 12/17/23 buprenorphine 8 mg-naloxone 2 mg film 12/17/23 sublingual film cetirizine 10 mg tablet mg 12/17/23 losartan 50 mg tablet mg 12/17/23 Previous Rx's Medication Instructions Recorded famotidine 40 mg tablet 40 mg PO HS #90 tabs 04/09/23 Allergies Allergy/AdvReac Type Severity Reaction Status Date / Time No Known Allergies Allergy Unverified 12/25/22 15:19 General Stated Complaint: Chest Pain CHAUNCEY: 2 Review of Systems All systems reviewed & are unremarkable except as noted in HPI and below Exam Narrative Exam Narrative: GENERAL APPEARANCE: Well-nourished, non-toxic, awake and alert, atraumatic, no acute distress. SKIN: Warm, pink, dry, intact, without rashes/lesions/ulcerations. HEAD: Normocephalic, atraumatic, normal hair distribution for gender/age. EYES: Pupils PERRLA, EOMs intact without nystagmus, normal conjunctiva, no exudates on lids/lashes. ENT: Nares patent, no circumoral cyanosis, no facial swelling NECK: Supple, trachea midline, painless cervical ROM. LUNGS/CHEST: Lungs CTA bilaterally- no rhonchi/rales/wheezes diffusely, non-labored respirations, normal A/P diameter, symmetrical expansion, no chest wall deformity HEART (CV/PV): Regular rate and rhythm without murmur, no peripheral edema, no JVD. ABDOMEN: Soft, non-distended, no guarding, no tenderness. MSK: Normal ROM, no swelling/deformity to bilateral UEs or LEs, moving all extremities without weakness, no cyanosis, spine midline without tenderness, normal curvature. NEURO: Mental Status AAOx4 - alert to person, place, time, events No facial droop, no forehead involvement. Motor: No focal weakness - strength 5/5 in bilateral UEs and LEs, proximal and distal, symmetric. Sensory: sensation intact to light touch globally. Gait normal: patient ambulated without ataxia into ED room. PSYCH: euthymic, cooperative, pleasant, appropriate speech Course Vital Signs Vital signs: Vital Signs Temperature 36.2 C L 12/17/23 14:14 Pulse 70 12/17/23 14:14 Respiratory Rate 19 12/17/23 14:14 Blood Pressure 162/86 H 12/17/23 14:14 Pulse Oximetry 99 12/17/23 14:14 Temperature 36.2 C L 12/17/23 14:14 Temperature Source Temporal Artery Scan 12/17/23 14:14 Pulse 70 04/09/24 14:14 Respiratory Rate 19 12/17/23 14:14 Blood Pressure 162/86 H 12/17/23 14:14 Blood Pressure Position Supine 12/17/23 14:14 Pulse Oximetry 99 12/17/23 14:14 Oxygen Delivery Method Room Air 12/17/23 14:14 Oxygen Flow Rate 0 12/17/23 14:14 Pain Level 0 12/17/23 14:14 Medical Decision Making This dictation utilizes duaej-ve-yiga dictation software and may contain unedited grammatical errors. 63 y/o M presents to ED today with a chief complaint of chest pressure with activity, mild to moderate, lasting 5-10 minutes after handling heavy loading straps used to secure heavy equipment. States this has been going on for some time chronically with activity- feels different than GERD. States today it started around [id number] then again 1.5 hrs later, resolves with cessation of activity within 5-10 minutes usually. Patient endorses some sweating with this pressure, radiating down bilateral arms, denies shortness of breath or syncope. Patients' medical history: HTN, COPD, kidney stones, hernia, history of epigastric pain, history of aortic dilatation. Family and social history: Quit smoking years ago, works as a heavy equipment operating engineer. Pertinent exam findings / vital signs include benign cardiopulmonary exam, no adventitious lung sounds, benign abdomen, neuro intact. Differential / pathologies of concern include ACS, unlikely pneumonia, COPD exacerbation, ischemic demand, aortic dissection less likely. Diagnostic studies of: -CBC, CMP, Trop I + delta Trop, EKG, Portable CXR, D-dimer, Magnesium. -CBC unremarkable -Delta Trop's negative -D-dimer negative -Magnesium mild low- will replete with normal PO intake -CMP unremarkable -CXR negative -EKG shows sinus rhythm at 64 bpm with P waves followed by narrow complex QRS with normal axis, good R wave progression, no ST elevations, submillimeter ST depression in aVF, normal QT QTc. Interventions of: -none, no active CP - referred Cardiology outpatient with LOW Heart Score. ED Course/Assessment/Plan: 63-year-old male reporting repeated sensations of chest pressure with some diaphoresis with his activities of work operating heavy equipment, ongoing for days to weeks but onset this morning 2 different episodes with resolution is he says stated activity within 5 to 10 minutes. Consistent with stable angina, patient does not have prior cardiology studies and with a low heart score I do think it is necessary he received follow-up at a cardiology office for likely stress test and echocardiogram. Counseled the patient on starting an 81 mg aspirin at home and provided him with a referral to cardiology service, strict return criteria for any further episodes of chest pain especially any chest pain lasting longer than 45 minutes. Findings not consistent with myocardial infarction, PE, pneumonia, aortic dissection, acute coronary syndrome-question ischemic demand. Disposition of chest pain of uncertain etiology. Patient verbalized understanding of the plan and return to ED criteria and engaged in shared decision making. Medical Records Medical records reviewed: Yes I reviewed the patient's medical records. Imaging Data Radiologic Study: Attestation: I personally reviewed and interpreted this imaging study as follows: Imaging: X-Ray Radiologist's impression: EXAM: XR PORTABLE CHEST AP CLINICAL HISTORY: Chest Pain TECHNIQUE: 2D digital imaging was performed. COMPARISON: CT CT CHEST LUNG CANCER SCREEN from 11/25/2023 FINDINGS: LUNGS: Clear. No pleural abnormality seen. HEART: Normal size. AORTA: Normal diameter. BONES: Unremarkable for age. Soft tissues: Unremarkable. IMPRESSION: No acute findings. Lab Data Lab results reviewed: Yes I reviewed the patient's lab results. Labs: Laboratory Tests Range/Units 12/17/23 12/17/23 12/17/23 14:22 15:19 17:21 WBC (4.4-10.8) 10^3/uL 8.92 RBC (4.36-5.78) 10^6/uL 4.37 Hgb (13.5-17.5) g/dL 13.4 L Hct (40.0-50.0) % 38.1 L MCV (80-95) fL 87 MCH (27.0-33.0) pg 30.7 MCHC (32.0-36.0) % 35.2 RDW (11.8-14.1) % 12.2 Plt Count (130-400) 10^3/uL 273 MPV (8.0-11.0) fL 9.3 Immature Gran % 0.3 Neutrophils % 64.2 Lymphocytes % 23.0 Monocytes % 7.1 Eosinophils % 4.4 Basophils % 1.0 Nucleated RBC % (0.0-0.3) % 0.0 Absolute Neutrophils (1.2-6.7) 10^3/uL 5.73 Absolute Lymphocytes (1.2-3.4) 10^3/uL 2.05 Absolute Monocytes (0.1-0.8) 10^3/uL 0.63 Absolute Eosinophils (0.0-0.7) 10^3/uL 0.39 Absolute Basophils (0.0-0.2) 10^3/uL 0.09 D-Dimer (<500) ng/mlFEU 491 VBG Lactate Cancelled Sodium (136-145) mmol/L 139 Potassium (3.5-5.1) mmol/L 3.6 Chloride (98-107) mmol/L 103 Carbon Dioxide (21.0-32.0) mmol/L 27.0 Anion Gap (3-11) mmol/L 9.0 BUN (7-18) mg/dL 10 Creatinine (0.70-1.30) mg/dL 0.8 Est GFR (CKD-EPI 2020) (mL/min/1.73m2) 100.69 Glucose (74-106) mg/dL 103 Calcium (8.5-10.1) mg/dL 8.5 Magnesium (1.8-2.4) mg/dL 1.7 L Total Bilirubin (0.2-1.0) mg/dL 0.6 AST (15-37) U/L 14 L ALT (16-63) U/L 27 Alkaline Phosphatase (46-116) U/L 86 Troponin I (< or =60) ng/L < 50 < 50 Total Protein (6.4-8.2) g/dL 7.3 Albumin (3.4-5.0) g/dL 4.0 Quality:SDOH Health Related Social Needs: No Data to Display PFSH All Active Problems (Updated 12/17/23 @ 18:00 by CASPER Tejada) Chest pain of uncertain etiology (Acute) Epigastric pain (Acute) Diastasis recti (Acute) Aortic dilatation (Acute) Renal cyst, left (Acute) Medical History (Updated 12/17/23 @ 18:00 by CASPER Tejada) COPD (chronic obstructive pulmonary disease) Vitamin D deficiency Dyslipidemia Hearing loss Smoker RUQ pain Abdominal or pelvic swelling, mass or lump, periumbilic Umbilical hernia Kidney stones HTN (hypertension) Surgical History History of ventral hernia repair (~12/12/22) History of tonsillectomy Hx of lithotripsy Social History Smoking/Tobacco Use Status: Former Tobacco Use Quit Date: 10/10/21 Smoking risk assessment performed?: Yes Alcohol Intake: former Substance use type: does not use Do you feel safe at home: Yes Do you feel safe in your relationship?: Yes Additional Social history: lives alone
[2023-12-17 14:35] LABS: Abs Immature Grans 0.03 10^3/uL (0.0-0.06); Absolute Basophil Count 0.09 10^3/uL (0.0-0.2); Absolute Eosinophil Count 0.39 10^3/uL (0.0-0.7); Absolute Lymphocyte Count 2.05 10^3/uL (1.2-3.4); Absolute Monocyte Count 0.63 10^3/uL (0.1-0.8); Absolute Neutrophil Count 5.73 10^3/uL (1.2-6.7); Eosinophils % 4.4; HCT 38.1 % (40.0-50.0); HGB 13.4 g/dL (13.5-17.5); Immature Grans % 0.3; MCH 30.7 pg (27.0-33.0); MCHC 35.2 % (32.0-36.0); MCV 87 fL (80-95); MPV 9.3 fL (8.0-11.0); Monocytes % 7.1; Neutrophils % 64.2; Platelet Count 273 10^3/uL (130-400); RBC 4.37 10^6/uL (4.36-5.78); RDW 12.2 % (11.8-14.1); RDW-SD 39.4 fL; WBC 8.92 10^3/uL (4.4-10.8)
[2023-12-17 14:51] LABS: ALT 27 U/L (16-63); AST 14 U/L (15-37); Alkaline Phosphatase 86 U/L (46-116); BUN 10 mg/dL (7-18); Bilirubin, Total 0.6 mg/dL (0.2-1.0); CREATININE 0.8 mg/dL (0.70-1.30); Calcium 8.5 mg/dL (8.5-10.1); Chloride 103 mmol/L (98-107); Estimated GFR 100.69 (mL/min/1.73m2); Glucose 103 mg/dL (74-106); Magnesium 1.7 mg/dL (1.8-2.4); Potassium 3.6 mmol/L (3.5-5.1); Sodium 139 mmol/L (136-145); Total Protein 7.3 g/dL (6.4-8.2); Troponin I < 50 ng/L (< or =60)
--- NOTE | 2023-12-17 14:54 | DI.RAD_ITS ---
Exam(s) XR PORTABLE CHEST AP EXAM: XR PORTABLE CHEST AP CLINICAL HISTORY: Chest Pain TECHNIQUE: 2D digital imaging was performed. COMPARISON: CT CT CHEST LUNG CANCER SCREEN from 11/25/2023 FINDINGS: LUNGS: Clear. No pleural abnormality seen. HEART: Normal size. AORTA: Normal diameter. BONES: Unremarkable for age. Soft tissues: Unremarkable. IMPRESSION: No acute findings. DATA REPOSITORY: RADIATION DOSE DELIVERED:
[2023-12-17 16:02] LABS: D-Dimer 491 ng/mlFEU (<500)
[2023-12-17 17:57] LABS: Troponin I < 50 ng/L (< or =60)
--- NOTE | 2023-12-17 18:12 | NUR.NOTE ---
Referral faxed to [facility] Cardiology for chest pain, echo, stress test; within 2 weeks. Nursing Note:
== END 2023-12-17 18:21 | disposition home or self-care (01) ==
PROVIDERS: Registered Nurse Emergency; Emergency Provider Physician Assistant; PCP Nurse Practitioner Family
DX: R07.9 Chest pain, unspecified (principal); I10 Essential (primary) hypertension; J44.9 Chronic obstructive pulmonary disease, unspecified; Z87.891 Personal history of nicotine dependence
CPT/HCPCS: 36415; 80053; 93005; 99285; 71045; 83605; 83735; 84484; 85025; 85379; 93010; 99284

== ENCOUNTER → 2024-01-13 00:40 | Outpatient (CLI) | payer BC, SELFPAY ==
--- NOTE | 2024-01-13 | DI.NM_ITS ---
APPROVED REPORT Exam: Pharmacologic Patient Location: Out-Patient Room/Bed: Stress Nurse: Adin Cheema RN Ordering Provider:JHON HERNANDEZ, Contact Number: [phone] BMI: 26.46 Baseline Rhythm: Sinus Rhythm Medical History Medical History: COPD, Dyslipidemia, HTN. Cardiac Medications: Amlodipine, Losartan., Allergies: No known drug allergies Cardiac Risk Factors: COPD, HTN, dyslipidemia. Pretest Chest Pain Characteristics: No chest pain Exercise History: Indeterminate Lung Sounds: Clear to auscultation Heart Sounds: Regular Stress Test Details Test: Exercise stress converted to pharmacologic stress due to failure to obtain a diagnostic stress test. Reason for pharmacologic stress test: Failure to reach target HR. Intolerance. Nuclear Acquisition: Rest Tc-99m/Stress Tc-99m 1 day Rest Isotope: Tc-99m Sestamibi. Dose: 10.0 Date: 01/13/2024 Injection Time: 1130 Stress Isotope: Tc-99m Sestamibi. Dose: 30.0 Date: 01/13/2024 Injection Time: 1320 HR Resting HR Supine: 56 bpm Max Heart Rate (APMHR): 159.815281 bpm Resting HR Standin bpm Target HR (85% APMHR): 135.937925 bpm Max HR Achieved: 132 bpm % of APMHR: 83.02 Recovery HR: 65 bpm HR response to stress: Normal HR response to stress BP Resting BP Supine: 129/76 mmHg Resting BP Standin/72 mmHg Max BP: 176/78 mmHg Recovery BP: 144/84 mmHg BP response to stress: Normal blood pressure response to stress. ECG Resting ECG: Sinus Bradycardia Ectopy: none Stress ECG: Sinus Tachycardia ST Change: Downsloping ST depression Lead(s): V4, , V5, V6, II, III, aVF Stage: [address] Deviation: 4 mm Comment: Bilateral posteral arm pain and global chest area 5/10 described as dull ache. Staes it's t he same as when he went to the hospital initially. Recovery ECG: Sinus Rhythm Recovery ST Change: Downsloping ST depression Lead(s): II, III, aVF, V4, V5 Recovery ST Deviation: 4. mm Recovery Arrhythmia: Rare PVC Comment: ST depression resolved in recoverery with resolving symptoms. Clinical Reason for Termination: Fatigue, Chest pain/Anginal equivalent, Dyspnea Stress Symptoms: Chest pain, Dyspnea, General Fatigue Exercise duration: 4 min12 sec Highest Stage Reached: Stage 1: 1.7 mph at 10% grade. Exercise capacity: 6.06 METs Angina Score: Exercise-Limiting Wofle Treadmill Score: -24.0 Rate Pressure Product: [id number] Stress ECG Conclusion 1. Resting EKG was normal 2. Patient underwent testing using combination of exercise and pharmacologic stress with regadenoson 3. Peak heart rate achieved was 83% of predicted for age, workload was 6.06 METS 4. At peak exercise there was [address] depression in the inferior and anterolateral leads. In recovery ST's became downsloping 5. There was electrocardiographic evidence of myocardial ischemia 6. There were no significant dysrhythmias 7. See MPI report Wolfe Treadmill Score is -24.0 which is High risk. Stress Test Summary STAGE Time (mins) Speed (mph) Grade (%) HR BP SpO2 SYMPTOMS METS Supine 56 129/76 96 Standing 57 118/72 96 1 3 1.7 10 110 168/74 99 C.P. SOB. Fatigue 4.5 1 min post Lexiscan injection 65 176/78 C.P. 3 min post Lexiscan injection 69 160/80 Resolving C.P. 6 min post Lexiscan injection 67 150/84 95 9 min post Lexiscan injection 65 144/84 94 C/O aching chest pain and pain under both arms at end of stage I into beginning of stage II. Increas ed fatigue and SOB. Transitioned to Lexiscan. Down sloping ST depressions noted in V4, V5, V6, II, III, and AVF resolving during recovery phase with subsiding chest pain. States it was the same pain that he had when he initially went to the hospital. 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 All symptoms resolved prior to proceding to imaging. Dr. Shanks notified. OK to leave. MPI Conclusion Myocardial perfusion is abnormal. There is anteroapical ischemia Ejection fraction is 50% without discernible wall motion abnormalities Radiologist Interpretation Radiologist agrees with It Instructor's Interpretation. Radiologist Interpretation by: Gem Delgado MD Interpretation Date/Time: 01/13/2024 16:21:36
[2024-01-13] MEDS: Regadenoson 0.4 MG/5 ML SYR IVP (14:11)
== END ==
PROVIDERS: PCP Nurse Practitioner Family; Visit Provider Nurse Practitioner Family
DX: R94.39 Abnormal result of other cardiovascular function study (principal); R07.9 Chest pain, unspecified
CPT/HCPCS: 78452; 93017; J2785

== ENCOUNTER → 2024-01-24 00:04 | Outpatient (CLI) | payer BC, SELFPAY ==
--- NOTE | 2024-01-24 07:30 | DI.US_ITS ---
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 Ejection fraction is 65%. Wall motion is n ormal Normal right ventricular size and function Both atria are normal in size There is no structural or hemodynamically significant valvular disease Wall motion Left Ventricle The left ventricle is normal size. Left ventricular systolic function is normal. The left ventricular ejection fraction is within the normal range. There is normal left ventricular wall thickness. There is normal LV segmental wall motion. There is no ventricular septal defect visualized. LVEF is 65%. Right Ventricle The right ventricle is normal size. The right ventricular systolic function is normal. Atria The left atrium size is normal. Right atrium is mildly dilated. Aortic Valve The aortic valve is normal in structure. Aortic valve is trileaflet. There is no aortic valvular sten osis. No aortic regurgitation is present. Mitral Valve The mitral valve is normal in structure. No evidence of mitral valve stenosis. Trace mitral regurgita tion. Tricuspid Valve The tricuspid valve is normal in structure. There is no tricuspid valve stenosis. Trace tricuspid reg urgitation. Unable to assess PA pressure. Pulmonic Valve The pulmonary valve is normal in structure. There is no pulmonic valvular stenosis. There is no pulmo corie valvular regurgitation. Great Vessels The aortic root is normal in size. The ascending aorta is normal in size. Aortic arch is normal in ca liber. IVC is normal in size and collapses >50% with inspiration. Pericardium There is no pericardial effusion. 2D Dimensions IVSD d PLAX 0.69 cm M: 0.6-1.2 Ao Root d 3.14 cm M: 3.1 - 3.7 LVPW d PLAX 0.69 cm M: 0.6 - 1.2 Ao Asc Diam d 3.49 cm M: 2.6 - 3.4 LVID d PLAX 5.28 cm M: 4.2 - 5.8 LVDs 3.32 cm M: 2.5 - 4.0 LV EF Teichholz 66.6 % FS 37.14 % LV EDV (Teich) 134.4 mL LV ESV (Teich) 44.8 mL Stroke Vol Index (Teich) 47.40 M-Mode TAPSE 3.64 cm (M/F) >1.7 Auto EF LV EDV A4C 127.2 mL LV EDV A2C 120.2 mL LV EDV BP 124.3 mL LV ESV A4C 46.1 mL LV ESV A2C 42.8 mL LV ESV BP 44.4 mL LVEF(%) A4C 63.8 % LVEF(%) A2C 64.4 % LVEF(%) BP 64.3 % LV SV A4C 81.1 ml LV SV A2C 77.4 ml LV SV BP 79.9 ml LV CO A4C 5.1 L/min LV CO A2C 4.8 L/min LV CO BP 5.0 L/min HR A4C 62.72 BPM HR A2C 62.50 BPM LV EDV Index (BP) LA Volume LA Length A4C 3.7 cm LA Length A2C 5.0 cm LA Area A4C s 8.15 cm2 LA Area A2C s 14.64 cm2 LA Vol A4C A-L 15.11 mL LA Vol A2C A-L 36.24 mL LA Vol Biplane A-L 27.1 mL LA Vol/BSA A4C A-L LA Vol/BSA A2C A-L LA Vol/BSA BP A-L 14.4 mL/m2 LA Vol A4C MOD 14.0 mL LA Vol A2C MOD 35.5 mL LA Vol BP MOD 25.6 mL RA Volume RA Area A4C 11.9 cm2 RA ESV A4C (A-L) 31.1mL RA Vol/BSA A4C A-L RA Length A4C 3.9 cm RA ESV A4C (MOD) 30.3mL LV Diastology MV E' medial 0.105 (>0.07 m/s) MV E Vmax 0.95 (0.4-1.3 m/s) MV E/E' MED 9.02 (<14) MV A Vmax 1.00 (0.4-1.3 m/s) MV E' lateral 0.092 (>0.1 m/s) E/A Ratio 0.9 MV E/E' LAT 10.29 (<14) MV E' Average 0.099 m/s MV E/E'(average) 9.61 Aortic Valve AoV Vmax 1.72 m/s LVOT Vmax 1.17 m/s AoV Peak Grad 11.8 mmHg LVOT Peak Grad 5.4 mmHg AoV Area (Vmax) 2.10 cm2 LVOT VTI 0.270 m AoV VTI 0.382 m LVOT Mean Grad 2.4 mmHg AoV Mean Akira. 1.05 m/s LVOT SV 83.85 mL AoV Mean Grad 5.1 mmHg LVOT Diam s 1.95 cm AoV Area (VTI) 2.19 cm2 Velocity Ratio 0.68 Mitral Valve MV DT 185 (160-240 msec) Pulmonary Valve PV Vmax 0.93 (0.5-1.5 m/s) RVOT Vmax 0.59 m/s PV Peak Grad 3.5 mmHg RVOT Peak Gr. 1.4 mmHg PV Mean Akira 0.64 m/s RVOT VTI 0.134 m PV Mean Grad 1.9 mmHg RVOT Mean Gr. 0.8 mmHg
== END ==
PROVIDERS: PCP Nurse Practitioner Family; Visit Provider Nurse Practitioner Family
DX: R07.9 Chest pain, unspecified (principal); I34.0 Nonrheumatic mitral (valve) insufficiency; I36.1 Nonrheumatic tricuspid (valve) insufficiency
CPT/HCPCS: 93306

== ENCOUNTER 2024-02-07 09:31 | Outpatient (CLI) | payer BC, SELFPAY ==
--- NOTE | 2024-02-07 09:30 | RT.EKG_ITS ---
APPROVED REPORT Exam: Resting ECG Reason for Exam: evaluation of cardiac status Patient Location: O HR:60 bpm ECG Measurements Heart Rate 60 AXIS WA 171 P 39 QRSd 97 QRS 39 QT 402 T 18 QTc 402 Conclusion Sinus rhythm...normal P axis, V-rate 50- 99 Normal Electrocardiogram
== END 2024-02-07 09:32 | disposition home or self-care (01) ==
LOC: DI.CARD 09:32
PROVIDERS: PCP Nurse Practitioner Family; Visit Provider Internal Medicine Cardiovascular Disease
DX: I10 Essential (primary) hypertension (principal); E78.5 Hyperlipidemia, unspecified; R07.9 Chest pain, unspecified
CPT/HCPCS: 93010

== ENCOUNTER 2024-02-07 11:53 | Outpatient (CLI) | payer BC, SELFPAY ==
[2024-02-07 12:12] LABS: HCT 39.1 % (40.0-50.0); MCH 31.3 pg (27.0-33.0); MCHC 35.8 % (32.0-36.0); MCV 87 fL (80-95); MPV 8.9 fL (8.0-11.0); Platelet Count 278 10^3/uL (130-400); RBC 4.48 10^6/uL (4.36-5.78); RDW 11.9 % (11.8-14.1); RDW-SD 38.5 fL; WBC 8.31 10^3/uL (4.4-10.8)
[2024-02-07 12:24] LABS: Anion Gap 8.4 mmol/L (3-11); BUN 10 mg/dL (7-18); CO2 29.6 mmol/L (21.0-32.0); CREATININE 0.9 mg/dL (0.70-1.30); Calcium 8.9 mg/dL (8.5-10.1); Chloride 105 mmol/L (98-107); Estimated GFR 97.17 (mL/min/1.73m2); Glucose 85 mg/dL (74-106); Potassium 4.3 mmol/L (3.5-5.1); Sodium 143 mmol/L (136-145)
[2024-02-07 12:32] LABS: PTT Activated 27.9 sec (23.6-32.8); Prothrombin Time 10.2 sec (9.1-11.1)
== END 2024-02-07 11:54 | disposition home or self-care (01) ==
LOC: LBO 11:53
PROVIDERS: PCP Nurse Practitioner Family; Visit Provider Internal Medicine Cardiovascular Disease
DX: I20.9 Angina pectoris, unspecified (principal)
CPT/HCPCS: 36415; 80048; 85027; 85610; 85730

== ENCOUNTER → 2024-04-13 01:45 | Outpatient (CLI) | payer MEDICAID, SELFPAY ==
--- NOTE | 2024-04-13 | ETT_ITS ---
APPROVED REPORT Exam: Exercise Treadmill Patient Location: Out-Patient Room/Bed: Stress Nurse: Rayray Nicole RN and Patria Law RN Ordering Provider:SELVIN CHANDRA, Contact Number: [phone] BMI: 25.23 Baseline Rhythm: Sinus Rhythm. Indications: S/P CABG x3. Medical History Medical History: COPD; GERD; Hyperlipidemia; Hypertension; Former Smoker. Cardiac Medications: Amlodipine; Losartan; Rosuvastatin; Albuterol; Qvar Inhaler; Metoprolol; Famotid ine; Fluticasone; Buprenorphine/Naloxone. Allergies: None. Cardiac Risk Factors: Hyperlipidemia; Hypertension; COPD; Former Smoker. Previous Cardiac Procedures: S/P CABG x3: event date 03/03/2024. Pretest Chest Pain Characteristics: None. Exercise History: Indeterminate. Physical Disabilities: None. Lung Sounds: Clear bilaterally throughout, anterior and posterior. Heart Sounds: S1 and S2 auscultated. Stress Test Details Test: Exercise stress testing was performed using a Parker protocol. Rest Stress HR Resting HR Supine: 60 bpm Max Heart Rate (APMHR): 159 bpm Resting HR Standin bpm Target HR (85% APMHR): 135 bpm Max HR Achieved: 121 bpm % of APMHR: 76 Recovery HR: 70 bpm HR response to stress: Normal HR response to stress. BP Resting BP Supine: 140/76 mmHg Resting BP Standin/80 mmHg Max BP: 194/68 mmHg Recovery BP: 130/70 mmHg BP response to stress: Normal blood pressure response to stress. ECG Resting ECG: Sinus Rhythm. Ectopy: None. Stress ECG: Sinus Tachycardia. ST Change: Nondiagnostic low heart rate. Arrhythmia: None. Recovery ECG: Sinus Rhythm. Recovery ST Change: Nondiagnostic low heart rate. Recovery Arrhythmia: None. Clinical Reason for Termination: Fatigue. Stress Symptoms: General Fatigue. Exercise duration: 08 min34 sec Highest Stage Reached: Stage 3: 3.4 mph at 14% grade. Exercise capacity: 10.16 METs Angina Score: None Rate Pressure Product: 05490 Stress ECG Conclusion 1. Resting electrocardiogram was normal 2. Patient exercised on the Parker protocol and completed workload of 10.16 METS 3. Normal heart rate and blood pressure response to exercise. The patient achieved 76% of predicted heart rate for age 4. The electrocardiographic portion of the test was nondiagnostic due to inadequate heart rate 5. There were no dysrhythmias Stress Test Summary STAGE Time (mins) Speed (mph) Grade (%) HR BP SpO2 SYMPTOMS METS Supine 60 140/76 96 Standing 63 144/80 95 1 3 1.7 10 96 158/76 95 4.5 2 6 2.5 12 109 164/70 96 7 3 9 3.4 14 121 Pt. complaining of mild fatigue. 10 1 min recovery 101 194/68 3 min recovery 75 160/72 97 6 min recovery 70 130/70 97 Pt. states that all fatigue has resolved. Pt. conversing pleasantly with nursing staff upon leaving the Stress Lab. Pt. left ambulatory in no a pparent distress.
== END ==
PROVIDERS: PCP Nurse Practitioner Family; Visit Provider Nurse Practitioner Family
DX: I25.810 Atherosclerosis of coronary artery bypass graft(s) without angina pectoris (principal)
CPT/HCPCS: 93017

== ENCOUNTER 2024-07-10 18:21 | Outpatient (REF) | payer MEDICAID, SELFPAY ==
[2024-07-10 17:54] LABS: ALT 25 U/L (16-63); AST 34 U/L (15-37); Albumin 4.3 g/dL (3.4-5.0); Alkaline Phosphatase 114 U/L (46-116); Anion Gap 14.8 mmol/L (3-11); BUN 9 mg/dL (7-18); Bilirubin, Total 0.86 mg/dL (0.2-1.0); CO2 24.2 mmol/L (21.0-32.0); CREATININE 0.6 mg/dL (0.70-1.30); Calcium 9.1 mg/dL (8.5-10.1); Chloride 104 mmol/L (98-107); Estimated GFR 109.14 (mL/min/1.73m2); Glucose 81 mg/dL (74-106); Sodium 143 mmol/L (136-145); Total Protein 7.8 g/dL (6.4-8.2)
== END 2024-07-10 18:22 | disposition home or self-care (01) ==
LOC: LBN 18:21
PROVIDERS: PCP Nurse Practitioner Family; Visit Provider Physician Assistant Medical
DX: R10.9 Unspecified abdominal pain (principal)
CPT/HCPCS: 80053; 85025

== ENCOUNTER 2024-07-12 05:37 | Emergency (ER) | payer BC, MEDICAID, SELFPAY ==
--- NOTE | 2024-07-12 05:30 | RT.EKG_ITS ---
APPROVED REPORT Exam: Resting ECG Reason for Exam: short of breath Patient Location: E HR:54 bpm ECG Measurements Heart Rate 54 AXIS ND 191 P 47 QRSd 101 QRS 27 QT 442 T 57 QTc 419 Conclusion Sinus bradycardia...rate< 60 Normal [place]/Interval Nonspecific ST-T changes precordial leads
[2024-07-12 05:40] VITALS: BP 195/92; PULSE 57; RESP 20; TEMP 36.6
--- NOTE | 2024-07-12 05:40 | W.ED.GENAD ---
Discharge Plan Disposition Patient Disposition: Home Condition: Good Discharge Details Clinical Impression: COPD exacerbation Primary Care Provider: Radha Frazier ED Provider: Nelson Redmond Meds and New Rx's Prescriptions: New prednisone 20 mg tablet 40 mg PO DAILY Qty: 8 0RF azithromycin 250 mg tablet 250 mg PO DAILY Qty: 4 0RF Continued amlodipine 5 mg tablet 5 mg PO BID Patient Comments: 02/05/24 Per PCP notes RH losartan 50 mg tablet 50 mg PO BID Patient Comments: 02/05/24 Per PCP notes RH rosuvastatin 5 mg tablet 5 mg PO DAILY Patient Comments: 02/05/24 Per PCP notes RH Qvar RediHaler 80 mcg/actuation HFA aerosol breath activated 2 inh inhalation BID Patient Comments: 02/05/24 Per PCP notes RH Rx Instructions: administer with spacer metoprolol succinate 25 mg tablet extended release 24 hr 25 mg PO DAILY Qty: 90 3RF One-A-Day Men's 50 Plus(vit K) 400-20-370 mcg tablet 1 tab PO DAILY famotidine 40 mg tablet 40 mg PO HS Qty: 90 4RF albuterol 90 mcg/actuation Aerosol 90 mcg INHALATION PRN PRN buprenorphine-naloxone 8-2 mg film 2 film sublingual BID Patient Comments: PLACE TWO FILMS UNDER THE TONGUE EVERY DAY Discharge Instructions Instructions: COPD Exacerbation, Adult ED Additional Instructions: You were seen for increasing shortness of breath, wheezing, cough likely an exacerbation of your COPD. Please take the prednisone and azithromycin as directed beginning tomorrow morning. You may use your albuterol rescue inhaler or neb every 4 hours as needed. Continue your maintenance inhalers and other medications. Follow-up with your primary care physician this week. Return to ED for increasing shortness of breath, neurologic change, chest pain, other concerns. Referrals: Radha Frazier [Primary Care Provider] - [facility] General Mode of arrival: ambulatory. Date/Time Provider Initiated Documentation: 07/12/24 05:40. Limitations to Documentation: no limitations. Information obtained by: patient and RN notes reviewed. HPI Narrative: Patient presents to ED with complaint of cough and shortness of breath. About a month ago his primary care prescribed a nebulizer with albuterol in addition to his inhalers. He reports that initially seemed to be doing okay. Over the last few days he has had increasing cough and shortness of breath. Since last night and this morning he has had to use his nebulizer 4 times. He denies any fever, sore throat, earache, chest pain or pressure. He has not smoked in 2 years. He is status post CABG few months ago. The albuterol nebulizers do help but he usually does not need to repeat the nebulizers so often. He denies any back pain, abdominal pain, vomiting, leg pain or leg swelling. Related Data Home Medications ?Medication ?Instructions ?Recorded ?Confirmed albuterol 90 mcg/actuation aerosol 90 mcg inhalation PRN PRN 03/18/22 07/12/24 inhaler [id number] acid-vit 1 tab PO DAILY 11/29/22 07/12/24 K-lycop 400 mcg-20 mcg-370 mcg tablet (One-A-Day Men's 50 Plus (with vitamin K)) famotidine 40 mg tablet 40 mg PO HS #90 tabs 04/09/23 07/12/24 buprenorphine 8 mg-naloxone 2 mg 2 film sublingual BID opiate 12/17/23 07/12/24 sublingual film amlodipine 5 mg tablet 5 mg PO BID 02/05/24 07/12/24 beclomethasone dipropionate 80 2 inh inhalation BID 02/05/24 07/12/24 mcg/actuation HFA breath activated aerosol (Qvar RediHaler) losartan 50 mg tablet 50 mg PO BID 02/05/24 07/12/24 rosuvastatin 5 mg tablet 5 mg PO DAILY 02/05/24 07/12/24 metoprolol succinate 25 mg 25 mg PO DAILY #90 tabs 02/07/24 07/12/24 tablet,extended release 24 hr azithromycin 250 mg tablet 250 mg PO DAILY #4 tabs 07/12/24 prednisone 20 mg tablet 40 mg (2 x 20 mg) PO DAILY #8 tabs 07/12/24 Previous Rx's ?Medication ?Instructions ?Recorded famotidine 40 mg tablet 40 mg PO HS #90 tabs 04/09/23 metoprolol succinate 25 mg 25 mg PO DAILY #90 tabs 02/07/24 tablet,extended release 24 hr azithromycin 250 mg tablet 250 mg PO DAILY #4 tabs 07/12/24 prednisone 20 mg tablet 40 mg (2 x 20 mg) PO DAILY #8 tabs 07/12/24 Allergies Allergy/AdvReac Type Severity Reaction Status Date / Time No Known Allergies Allergy Verified 07/12/24 05:57 General CHAUNCEY: 2 Review of Systems Narrative: Per HPI Exam Narrative Exam Narrative: Const: WDWN male in NAD. VS per triage. HEENT: NC/AT. Normal facial exam. Neck: Supple. Trachea midline. Lungs: Normal respiratory effort. Lungs with wheezing B bases. Cor: RRR without murmur. Good radial pulses. GI: Soft/ND/NT. Neuro: A+O x 3. Normal speech, mentation, gait. Cranial nerves II - XII grossly intact. No gross motor or sensory deficit. Ext: No C/C/E. Medical Decision Making Patient presenting to ED with complaint of worsening cough and shortness of breath despite use of his inhalers and nebulizer. He was prescribed a nebulizer with albuterol about a month ago. He is status post CABG few months ago. He has no fever, other URI type symptoms, chest pain or pressure. Nebulizers do help but he is having to use them more often. Saturations are good here. He is in no distress. He does have wheezing at both bases. Suspect he needs steroids and would probably benefit from azithromycin as well. His EKG is sinus rhythm with nonspecific ST changes that are new since his CABG compared to our prior EKGs. There is nothing acute. Chest x-ray is ordered as well as [id number] COVID and flu. Patient's chest x-ray per my review with no infiltrate or acute cardiopulmonary process. His [id number] COVID and flu are negative. Patient can be discharged home with prescriptions for prednisone and azithromycin. Instructed to use albuterol either MDI or neb every 4 hours over the next couple of days. He needs to follow-up with primary care this week for recheck. Return precautions provided. Imaging Data Radiologic Study: Attestation: I personally reviewed and interpreted this imaging study as follows: Imaging: X-Ray (chest) My impression: see [facility] ECG Data Attestation: I personally reviewed and interpreted this ECG (s) as follows: Prior ECG tracings: available for review Interpretation: see MDM/EKG PFSH All Active Problems (Updated 07/12/24 @ 06:40 by Nelson Redmond MD) COPD exacerbation (Acute) Smoker (Acute) 02/05/24 Per PCP notes pt quit pack year +20 years, Quit 2022, RH Opioid abuse (Acute) 02/05/24 Per PCP notes on suboxone RH Aortic dilatation (Acute) Renal cyst, left (Acute) Medical History COPD (chronic obstructive pulmonary disease) Vitamin D deficiency Dyslipidemia Hearing loss Kidney stones HTN (hypertension) Surgical History S/P CABG (coronary artery bypass graft) History of ventral hernia repair (~12/12/22) History of tonsillectomy Hx of lithotripsy Social History Smoking/Tobacco Use Status: Former Tobacco Use Quit Date: 10/10/21 Smoking risk assessment performed?: Yes Alcohol Intake: former Substance use type: prescription drug Do you feel safe at home: Yes Do you feel safe in your relationship?: Yes Additional Social history: lives alone
[2024-07-12] MEDS: Albuterol/Ipratropium 3 ML UPD VIAL UPD (06:05)
[2024-07-12] MEDS: predniSONE 20 MG TAB 60 MG PO (06:05)
[2024-07-12] MEDS: Azithromycin 250 MG TAB 500 MG PO (06:05)
--- NOTE | 2024-07-12 06:28 | DI.RAD_ITS ---
Exam(s) XR CHEST 2V PA LATERAL EXAM: XR CHEST 2V PA LATERAL CLINICAL HISTORY: cough, SOB TECHNIQUE: 2D digital imaging was performed. Two views. COMPARISON: CR XR PORTABLE CHEST AP from 12/17/2023 FINDINGS: HEART: Normal size. Aorta: Not dilated. PULMONARY VASCULATURE: Normal. MEDIASTINUM: Unremarkable. Status post CABG. LUNGS: Clear. PLEURAL SPACE: No pleural effusion or pneumothorax. BONE:Sternal wires. SOFT TISSUES: Unremarkable. IMPRESSION: No acute abnormality. DATA REPOSITORY: RADIATION DOSE DELIVERED:
--- NOTE | 2024-07-12 07:13 | DI.VRAD_ITS ---
PROCEDURE INFORMATION: Exam: XR Chest Exam date and time: 07/12/2024 6:25 AM Age: 64 years old Clinical indication: Cough and shortness of breath; Prior surgery; Surgery date: 1-6 months; Surgery type: Triple bypass; Patient HX: Cough. SOB TECHNIQUE: Imaging protocol: Radiologic exam of the chest. Views: 2 views. COMPARISON: CR XR PORTABLE CHEST AP 12/17/2023 2:50 PM FINDINGS: Lungs: No focal consolidation seen. Pleural spaces: No large pleural effusion seen. Heart/Mediastinum: No cardiomegaly. Bones/joints: No acute abnormality. IMPRESSION: No acute findings to explain reported symptoms. Dictated and Authenticated by: Justyna Casarez MD. Ordering:FREDDY Damon MD
--- NOTE | 2024-07-12 12:33 | NUR.NOTE ---
[facility] stated they did not receive electronic rx for patient's azithromycin and prednisone. Advised them of the orders and they will fill for the pt. Spoke with Angy at [facility].
== END 2024-07-12 06:47 | disposition home or self-care (01) ==
PROVIDERS: Emergency Provider Emergency Medicine; PCP Nurse Practitioner Family
DX: J44.1 Chronic obstructive pulmonary disease with (acute) exacerbation (principal)
CPT/HCPCS: 87426; 93005; 99284; 71046; 93010; J7512; J7620

== ENCOUNTER 2025-03-26 11:39 | Emergency (ER) | payer BC, SELFPAY ==
--- NOTE | 2025-03-26 11:45 | DI.CT_ITS ---
Exam(s) CT ABDOMEN PELVIS W EXAM: CT ABDOMEN PELVIS W CLINICAL HISTORY: Lower abdominal pain. TECHNIQUE: Imaging Protocol: Axial computed tomography images with coronal and sagittal reformatted images were created and reviewed CONTRAST MATERIAL: Intravenous: Omnipaque-350 75cc Oral: None COMPARISON: CT CT CHEST LUNG CANCER SCREEN from 11/12/2022 CT,NM,TMT NM MPI REST STRESS GRP from 01/13/2024 FINDINGS: VISUALIZED LUNG BASES: No nodules nor pleural effusions evident. ABDOMEN: There is no ascites. LIVER: There are no focal hepatic lesions evident. No dilated intrahepatic ducts. GALLBLADDER/BILIARY: There is a tiny density on the anterior wall of the gallbladder which may be a small polyp. There is no gallbladder wall edema nor pericholecystic fluid. CBD is not dilated. PANCREAS: No evidence of pancreatic mass nor dilatation of the pancreatic duct. SPLEEN: Spleen is not enlarged. No obvious intrasplenic lesions. Splenic and portal veins are patent. ADRENALS: There are no significant adrenal masses. KIDNEYS:Right kidney unremarkable. There are few benign cysts in the left kidney, the largest measuring 2 cm. These do not require further workup. There are no solid masses but there are few tiny calculi in left kidney and there is ipsilateral hydronephrosis and hydroureter and there is a calculus in the lower most left ureter at the UVJ level which measures 4 mm.. ABDOMINAL AORTA: Moderate atherosclerotic involvement. Upper normal size. Iliac arteries are calcified but not enlarged. LYMPH NODES:There is no retroperitoneal nor paraaortic adenopathy. ABDOMINAL WALL: No evidence of significant anterior abdominal wall nor inguinal hernia. GI: There is no evidence of bowel obstruction, free air, nor abscess. PELVIS: GI: The appendix is slightly dilated measuring 7 mm. There is no surrounding streaking and there is no intraluminal appendicolith. no evidence of sigmoid diverticulitis. LYMPH NODES: There is no intrapelvic nor inguinal adenopathy. REPRODUCTIVE: Prostate size upper normal. Seminal vesicles unremarkable. URINARY BLADDER: Collapsed. OSSEOUS: No fractures and no significant osseous lesions. IMPRESSION: 1. There is a 4 millimeter calculus in the lower left ureter at the ureterovesical junction level and there is mild hydronephrosis and hydroureter above this level. There are a few small remaining calculi also noted in in a left kidney. 2. The appendix appears mildly swollen with diameter of 7-8 mm. There is also some circumferential enhancement of the wall of the appendix. There is no dominant periappendiceal streaking. Recommend follow-up to rule out developing acute appendicitis. 3. Possible tiny gallbladder polyp. No evidence of acute cholecystitis. The biliary tree is not dilated. Report called by myself to ER provider 03/26/2025 at 2:01 p.m. RADIATION DOSE DELIVERED: 388.06mGy.cm Total DLP DATA REPOSITORY: All CT scans at this facility are submitted to the National Radiology Data Registry (NRDR) Dose Index Registry (DIR) with the [employer] (ACR). RADIATION OPTIMIZATION: All CT scans at this facility use at least one of these dose optimization techniques: automated exposure control; mA and/or kV adjustment per patient size (includes targeted exams where dose is matched to clinical indication); or iterative reconstruction.
[2025-03-26 11:47] VITALS: BP 239/91; PULSE 51; RESP 16; O2SAT 97
[2025-03-26 11:51] VITALS: TEMP 36.8
--- NOTE | 2025-03-26 11:54 | W.ED.GENAD ---
Discharge Plan Disposition Patient Disposition: Home Discharge Details Clinical Impression: Hydronephrosis with ureteral calculus Primary Care Provider: Radha Frazier ED Provider: Eloy Miller Home Meds and New Rx's Prescriptions: New ketorolac 10 mg tablet 10 mg PO Q8H PRN (Reason: pain) 5 Days Qty: 15 0RF tamsulosin [Flomax] 0.4 mg capsule 0.4 mg PO QHS Qty: 14 0RF Continued amlodipine 5 mg tablet 5 mg PO BID Patient Comments: 02/05/24 Per PCP notes [facility] losartan 50 mg tablet 50 mg PO BID Patient Comments: 02/05/24 Per PCP notes [facility] rosuvastatin 5 mg tablet 5 mg PO DAILY Patient Comments: 02/05/24 Per PCP notes [facility] Qvar RediHaler 80 mcg/actuation HFA aerosol breath activated 2 inh inhalation BID Patient Comments: 02/05/24 Per PCP notes [facility] Rx Instructions: administer with spacer One-A-Day Men's 50 Plus(vit K) 400-20-370 mcg tablet 1 tab PO DAILY famotidine 40 mg tablet 40 mg PO HS Qty: 90 4RF albuterol 90 mcg/actuation Aerosol 90 mcg INHALATION PRN PRN prednisone 20 mg tablet 40 mg PO DAILY Qty: 8 0RF azithromycin 250 mg tablet 250 mg PO DAILY Qty: 4 0RF atorvastatin 80 mg tablet 80 mg PO DAILY Patient Comments: TAKE ONE TABLET BY MOUTH EVERY DAY metoprolol tartrate 25 mg tablet 25 mg PO BID Patient Comments: TAKE ONE TABLET BY MOUTH TWICE A DAY cetirizine [24Hour Allergy] 10 mg tablet 10 mg PO DAILY PRN omeprazole 20 mg capsule,delayed release(DR/EC) 20 mg PO DAILY budesonide-formoterol [Symbicort] 160-4.5 mcg/actuation HFA aerosol inhaler 2 inh INHALATION BID Patient Comments: INHALE TWO PUFFS BY MOUTH TWICE A DAY buprenorphine-naloxone 8-2 mg film 2 film sublingual BID Patient Comments: PLACE TWO FILMS UNDER THE TONGUE EVERY DAY Discharge Instructions Instructions: Kidney stones in adults Additional Instructions: At this time it appears that you have a kidney stone in your left ureter causing some swelling to that area in your kidney. It is recommended that you drink 2 to 3 L of water per day, continue to monitor symptoms and return immediately for any new or significant worsening of your condition. If not improving in the next 2 weeks please follow-up with urology Referrals: [facility] [Provider Group] - 2 weeks Clinical Impression: Hydronephrosis with ureteral calculus HPI General Mode of arrival: ambulatory. Date/Time Provider Initiated Documentation: 03/26/25 11:40. Limitations to Documentation: no limitations. Information obtained by: patient and RN notes reviewed. History of Present Illness 64 year old M presents to the emergency department with the chief complaint of Lower abdominal pain, described as moderate and severe, with intensity rated at 8. Quality is described as sharp, and is localized to the abdomen. Patient reports no radiation. Patient started experiencing this hour(s) (3) and it has been constant. No relieving factors improve symptom(s), Movement worsens symptoms . Patient notes no other symptoms.. Patient did receive the following treatments prior to arrival, other (Acetaminophen) Related Data Home Medications ?Medication ?Instructions ?Recorded ?Confirmed albuterol 90 mcg/actuation aerosol 90 mcg inhalation PRN PRN 03/18/22 03/26/25 inhaler pyoshmvnlbns-[id number]-lfugg acid-vit 1 tab PO DAILY 11/29/22 03/26/25 K-lycop 400 mcg-20 mcg-370 mcg tablet (One-A-Day Men's 50 Plus (with vitamin K)) famotidine 40 mg tablet 40 mg PO HS #90 tabs 04/09/23 03/26/25 buprenorphine 8 mg-naloxone 2 mg 2 film sublingual BID opiate 12/17/23 03/26/25 sublingual film amlodipine 5 mg tablet 5 mg PO BID 02/05/24 03/26/25 beclomethasone dipropionate 80 2 inh inhalation BID 02/05/24 03/26/25 mcg/actuation HFA breath activated aerosol (Qvar RediHaler) losartan 50 mg tablet 50 mg PO BID 02/05/24 03/26/25 rosuvastatin 5 mg tablet 5 mg PO DAILY 02/05/24 03/26/25 azithromycin 250 mg tablet 250 mg PO DAILY #4 tabs 07/12/24 03/26/25 prednisone 20 mg tablet 40 mg (2 x 20 mg) PO DAILY #8 tabs 07/12/24 03/26/25 atorvastatin 80 mg tablet 80 mg PO DAILY 03/26/25 03/26/25 budesonide-formoterol HFA 160 2 inh inhalation BID 03/26/25 03/26/25 mcg-4.5 mcg/actuation aerosol inhaler (Symbicort) cetirizine 10 mg tablet (24Hour 10 mg PO DAILY PRN 03/26/25 03/26/25 Allergy) ketorolac 10 mg tablet 10 mg PO Q8H PRN pain 5 days #15 03/26/25 tabs metoprolol tartrate 25 mg tablet 25 mg PO BID 03/26/25 03/26/25 omeprazole 20 mg capsule,delayed 20 mg PO DAILY 03/26/25 03/26/25 release tamsulosin 0.4 mg capsule (Flomax) 0.4 mg PO QHS #14 caps 03/26/25 Previous Rx's ?Medication ?Instructions ?Recorded famotidine 40 mg tablet 40 mg PO HS #90 tabs 04/09/23 azithromycin 250 mg tablet 250 mg PO DAILY #4 tabs 07/12/24 prednisone 20 mg tablet 40 mg (2 x 20 mg) PO DAILY #8 tabs 07/12/24 ketorolac 10 mg tablet 10 mg PO Q8H PRN pain 5 days #15 03/26/25 tabs tamsulosin 0.4 mg capsule (Flomax) 0.4 mg PO QHS #14 caps 03/26/25 Allergies Allergy/AdvReac Type Severity Reaction Status Date / Time No Known Allergies Allergy Verified 03/26/25 11:50 General Stated Complaint: Abd Prob CHAUNCEY: 3 Review of Systems Constitutional Constitutional: Denies chills, Denies fever(s) and Reports poor appetite Cardiovascular Cardiovascular: Denies chest pain and Denies dyspnea Respiratory Respiratory: Denies cough and Denies dyspnea Gastrointestinal Gastrointestinal: Reports as per HPI, Reports abdominal pain, Denies melena, Denies change in bowel habits, Denies constipation, Denies diarrhea, Denies nausea and Denies vomiting Genitourinary Genitourinary: Denies hematuria, Reports oliguria, Denies difficulty urinating, Denies genital pain, Denies urinary hesitancy and Denies urinary incontinence Musculoskeletal Musculoskeletal: Denies back pain (No new from chronic) Integumentary/Breasts Skin/Breast: Denies rash Exam Const General: cooperative Orientation: alert, awake and oriented x3 Resp Effort & Inspection: normal respiratory effort and able to speak in complete sentences Auscultation: clear to auscultation bilaterally Cardio Rate: regular rate Rhythm: regular rhythm Heart Sounds: S1 normal and S2 normal GI Palpation: soft, not firm, no guarding, no masses, no pulsatile masses, not rigid, no splenomegaly and tender suprapubicly and Rovsing's sign positive; not in the epigastrum, not at McBurney's point, Goldman's sign negative and with no rebound tenderness Auscultation: normal bowel sounds General: No CVA tenderness Back/Spine/Pelvis Back: no CVA tenderness Thoracic/Lumbar Spine: thoracic and lumbar spine normal to inspection Neuro General: patient alert, patient awake, patient oriented x3, gait normal and moves all extremities Course Vital Signs Vital signs: Vital Signs Pulse 51 L 03/26/25 11:47 Respiratory Rate 16 03/26/25 11:47 Blood Pressure 239/91 H 03/26/25 11:47 Pulse Oximetry 97 03/26/25 11:47 Temperature 36.8 C 03/26/25 11:51 Temperature Source Oral 03/26/25 11:51 Pulse 51 L 03/26/25 11:47 Respiratory Rate 16 03/26/25 11:47 Blood Pressure 239/91 H 03/26/25 11:47 Blood Pressure Position Sitting 03/26/25 11:47 Pulse Oximetry 97 03/26/25 11:47 Oxygen Delivery Method Room Air 03/26/25 11:47 Oxygen Flow Rate 0 03/26/25 11:47 Pain Level 8 03/26/25 11:47 Medical Decision Making Patient presenting to the emergency department for chief complaint of suprapubic/lower abdominal pain that started a couple hours ago. Patient does have history of kidney stones but states that this feels different. Patient denies any nausea vomiting fever chills diarrhea, does state some difficulty with urination otherwise denies all other symptoms. He does state history of hypertension and that he did not take his morning medication. Physical exam shows suprapubic tenderness with some mid to right sided tenderness with palpation of the left abdomen and patient stating some relief with pressure on the right side of the abdomen, no CVA tenderness exam otherwise unremarkable. Initial vital signs do show some hypertension and bradycardia but this was not appreciated on auscultation and exam. Patient is otherwise stable in condition. Will treat patient's discomfort, obtain labs, bladder scan, and CT imaging including contrast. Reviewed patient's labs and CBC is completely normal with no signs of leukocytosis or shift, CMP also nondiagnostic, urinalysis did show some protein ketones and blood but no signs of infection. Bladder scan only showed [address] imaging did show a 4 mm stone in the lower left ureter with some hydronephrosis and hydroureter. Radiologist does note mildly swollen appendix and a tiny gallbladder polyp but given other findings I doubt at this time that this is cholecystitis or appendicitis especially given the rapid onset of symptoms and history of kidney stones. Reassessed patient and patient does state some improvement of discomfort after ketorolac. Given mildly distended appendix will give patient strict return precautions but will otherwise refer patient to follow-up with urology for reassessment if not improving in the next 2 weeks. With discussing plan of care with patient he did state that he moved a little bit and squatted down and pain now seems to be almost fully resolved. I feel this is reassuring. after discussion of diagnosis and plan of care patient has no further needs, questions, or concerns and states clear understanding to return to the emergency department for any worsening symptoms. This documentation was generated using [employer] dictation system, please disregard any oddities of phrase or misspellings. Imaging Data Radiologic Study: Imaging: CT Scan Radiologist's impression: Exam(s) CT ABDOMEN PELVIS W EXAM: CT ABDOMEN PELVIS W CLINICAL HISTORY: Lower abdominal pain. TECHNIQUE: Imaging Protocol: Axial computed tomography images with coronal and sagittal reformatted images were created and reviewed CONTRAST MATERIAL: Intravenous: Omnipaque-350 75cc Oral: None COMPARISON: CT CT CHEST LUNG CANCER SCREEN from 11/12/2022 CT,NM,TMT NM MPI REST STRESS GRP from 01/13/2024 FINDINGS: VISUALIZED LUNG BASES: No nodules nor pleural effusions evident. ABDOMEN: There is no ascites. LIVER: There are no focal hepatic lesions evident. No dilated intrahepatic ducts. GALLBLADDER/BILIARY: There is a tiny density on the anterior wall of the gallbladder which may be a small polyp. There is no gallbladder wall edema nor pericholecystic fluid. CBD is not dilated. PANCREAS: No evidence of pancreatic mass nor dilatation of the pancreatic duct. SPLEEN: Spleen is not enlarged. No obvious intrasplenic lesions. Splenic and portal veins are patent. ADRENALS: There are no significant adrenal masses. KIDNEYS:Right kidney unremarkable. There are few benign cysts in the left kidney, the largest measuring 2 cm. These do not require further workup. There are no solid masses but there are few tiny calculi in left kidney and there is ipsilateral hydronephrosis and hydroureter and there is a calculus in the lower most left ureter at the UVJ level which measures 4 mm.. ABDOMINAL AORTA: Moderate atherosclerotic involvement. Upper normal size. Iliac arteries are calcified but not enlarged. LYMPH NODES:There is no retroperitoneal nor paraaortic adenopathy. ABDOMINAL WALL: No evidence of significant anterior abdominal wall nor inguinal hernia. GI: There is no evidence of bowel obstruction, free air, nor abscess. PELVIS: GI: The appendix is slightly dilated measuring 7 mm. There is no surrounding streaking and there is no intraluminal appendicolith. no evidence of sigmoid diverticulitis. LYMPH NODES: There is no intrapelvic nor inguinal adenopathy. REPRODUCTIVE: Prostate size upper normal. Seminal vesicles unremarkable. URINARY BLADDER: Collapsed. OSSEOUS: No fractures and no significant osseous lesions. IMPRESSION: 1. There is a 4 millimeter calculus in the lower left ureter at the ureterovesical junction level and there is mild hydronephrosis and hydroureter above this level. There are a few small remaining calculi also noted in in a left kidney. 2. The appendix appears mildly swollen with diameter of 7-8 mm. There is also some circumferential enhancement of the wall of the appendix. There is no dominant periappendiceal streaking. Recommend follow-up to rule out developing acute appendicitis. 3. Possible tiny gallbladder polyp. No evidence of acute cholecystitis. The biliary tree is not dilated. PFSH All Active Problems (Updated 03/26/25 @ 14:26 by Eloy Miller NP) Hydronephrosis with ureteral calculus (Acute) Smoker (Acute) 02/05/24 Per PCP notes pt quit pack year +20 years, Quit 2022, [facility] Opioid abuse (Acute) 02/05/24 Per PCP notes on suboxone [facility] Aortic dilatation (Acute) Renal cyst, left (Acute) Medical History COPD (chronic obstructive pulmonary disease) Vitamin D deficiency Dyslipidemia Hearing loss Kidney stones HTN (hypertension) Surgical History S/P CABG (coronary artery bypass graft) History of ventral hernia repair (~12/12/22) History of tonsillectomy Hx of lithotripsy Social History Smoking/Tobacco Use Status: Former Tobacco Use Quit Date: 10/10/21 Smoking risk assessment performed?: Yes Alcohol Intake: former Substance use type: prescription drug Do you feel safe at home: Yes Do you feel safe in your relationship?: Yes Additional Social history: lives alone
[2025-03-26 11:56] VITALS: BP 239/91; PULSE 51; RESP 16; TEMP 36.8; O2SAT 97
[2025-03-26 12:04] LABS: Abs Immature Grans 0.02 10^3/uL (0.0-0.06); HCT 42.7 % (40.0-50.0); HGB 14.7 g/dL (13.5-17.5); Immature Grans % 0.3 %; MCH 30.4 pg (27.0-33.0); MCHC 34.4 % (32.0-36.0); MCV 88 fL (80-95); MPV 9.4 fL (8.0-11.0); Platelet Count 267 10^3/uL (130-400); RBC 4.83 10^6/uL (4.36-5.78); RDW 11.9 % (11.8-14.1); RDW-SD 38.2 fL; WBC 7.89 10^3/uL (4.4-10.8)
[2025-03-26] MEDS: Ketorolac 15 MG/ML VIAL IVP (12:05)
[2025-03-26 12:23] LABS: ALT 22 U/L (16-63); AST 14 U/L (15-37); Albumin 4.2 g/dL (3.4-5.0); Alkaline Phosphatase 102 U/L (46-116); Anion Gap 8.5 mmol/L (3-11); BUN 11 mg/dL (7-18); Bilirubin, Total 0.9 mg/dL (0.2-1.0); CO2 30.5 mmol/L (21.0-32.0); Calcium 8.9 mg/dL (8.5-10.1); Chloride 105 mmol/L (98-107); Estimated GFR 96.57 (mL/min/1.73m2); Glucose 101 mg/dL (74-106); Magnesium 2.0 mg/dL (1.8-2.4); Potassium 4.2 mmol/L (3.5-5.1); Sodium 144 mmol/L (136-145); Total Protein 7.4 g/dL (6.4-8.2)
[2025-03-26 12:37] VITALS: BP 168/63; PULSE 60
[2025-03-26] MEDS: Normal Saline - Diluent 50 ML VIAL IJ (13:14)
[2025-03-26] MEDS: Omnipaque 350 MG/ML 100 ML BTL 75 ML IJ (13:15)
[2025-03-26 13:41] LABS: Glucose Negative (Negative)
[2025-03-26 13:50] LABS: C & S Indicated? No; RBC >50 HPF (0-2); WBC 0-2 HPF (0-5)
[2025-03-26 14:10] VITALS: BP 218/88; PULSE 68
== END 2025-03-26 14:46 | disposition home or self-care (01) ==
PROVIDERS: Emergency Provider Nurse Practitioner Family; PCP Nurse Practitioner Family
DX: N13.2 Hydronephrosis with renal and ureteral calculous obstruction (principal); I10 Essential (primary) hypertension; E78.5 Hyperlipidemia, unspecified; J44.9 Chronic obstructive pulmonary disease, unspecified; Z95.1 Presence of aortocoronary bypass graft; Z87.891 Personal history of nicotine dependence
CPT/HCPCS: 36415; 80053; 96374; 99285; 74177; 81003; 81015; 83735; 85025; J1885; J3490

== ENCOUNTER 2025-05-28 22:18 | Outpatient (REF) | payer BC, SELFPAY ==
[2025-05-28 21:37] LABS: ALT 20 U/L (16-63); AST 16 U/L (15-37); Albumin 4.4 g/dL (3.4-5.0); Alkaline Phosphatase 102 U/L (46-116); Anion Gap 3.8 mmol/L (3-11); BUN 8 mg/dL (7-18); Bilirubin, Total 0.6 mg/dL (0.2-1.0); CO2 33.2 mmol/L (21.0-32.0); Calcium 9.5 mg/dL (8.5-10.1); Chloride 105 mmol/L (98-107); Estimated GFR 103.53 (mL/min/1.73m2); Glucose 95 mg/dL (74-106); Potassium 5.3 mmol/L (3.5-5.1); Sodium 142 mmol/L (136-145); Total Protein 7.4 g/dL (6.4-8.2)
== END 2025-05-28 22:19 | disposition home or self-care (01) ==
LOC: LBN 22:18
PROVIDERS: PCP Nurse Practitioner Family; Visit Provider Nurse Practitioner Family
DX: R10.30 Lower abdominal pain, unspecified (principal)
CPT/HCPCS: 80053

== ENCOUNTER 2025-06-03 02:01 | Outpatient (CLI) | payer BC, SELFPAY ==
--- NOTE | 2025-06-03 | DI.CT_ITS ---
Exam(s) CT ABDOMEN PELVIS W EXAM: CT ABDOMEN PELVIS W CLINICAL HISTORY: LOWER ABD PAIN R10.30 4 MONTHS PAIN MILD DILATION APPENDIX CT 03/2025 ?. TECHNIQUE: Imaging Protocol: Axial computed tomography images with coronal and sagittal reformatted images were created and reviewed CONTRAST MATERIAL: Intravenous: Omnipaque 350 Contrast volume:75 ml Oral: yes COMPARISON: CT CT ABDOMEN PELVIS W from 03/26/2025 FINDINGS: ABDOMEN and PELVIS: Lung Bases: No acute findings. Liver: Normal density. No suspicious mass. Gallbladder and biliary tract: No radiodense calculus. No wall thickening or pericholecystic fluid. No biliary dilation. Pancreas: Normal density. No abnormal calcifications or inflammatory process. No evidence of mass. Spleen: Normal. Kidneys: Normal size, contour and axis. Tiny nonobstructing stone noted upper to mid left kidney. No obstructive uropathy. No suspicious masses seen. Adrenal glands: No masses seen. Vasculature: Abdominal aorta non-dilated. Atherosclerotic changes. Soft tissues: Unremarkable. Bladder: No gross wall thickening. No calculi.No focal mass. Bowel: No obstruction. No bowel wall thickening. The appendix is unchanged in appearance. It is again noted to be mildly dilated at 7 millimeters. There is no surrounding inflammation. There is increased stool in the right colon and rectum. Peritoneal cavity: No ascites. No focal collection. No mesenteric inflammatory response. No free air. Bones: Unremarkable for age. Reproductive organs: Unremarkable. Lymph nodes: No pathologically enlarged lymph nodes. IMPRESSION:: No acute abnormality in the abdomen or pelvis. The appendix is unchanged in appearance. There is no evidence of inflammation. RADIATION DOSE DELIVERED: 409.08mGy.cm Total DLP DATA REPOSITORY: All CT scans at this facility are submitted to the National Radiology Data Registry (NRDR) Dose Index Registry (DIR) with the [employer] ([employer]). RADIATION OPTIMIZATION: All CT scans at this facility use at least one of these dose optimization techniques: automated exposure control; mA and/or kV adjustment per patient size (includes targeted exams where dose is matched to clinical indication); or iterative reconstruction.
[2025-06-03] MEDS: Breeza Beverage 473 ML BTL PO ×2 (08:29→08:30)
[2025-06-03] MEDS: Omnipaque 350 MG/ML 50 ML BTL PO (08:30)
[2025-06-03] MEDS: Normal Saline Flush 10 ML SYR IVP (10:00)
[2025-06-03] MEDS: Normal Saline - Diluent 50 ML VIAL IJ (10:03)
[2025-06-03] MEDS: Omnipaque 350 MG/ML 100 ML BTL IJ (10:04)
== END 2025-06-03 02:21 ==
PROVIDERS: PCP Nurse Practitioner Family; Visit Provider Nurse Practitioner Family
DX: R10.30 Lower abdominal pain, unspecified (principal)
CPT/HCPCS: 74177; J3490; Q9967

== ENCOUNTER 2025-07-20 14:57 | Outpatient (REF) | payer BC, SELFPAY ==
[2025-07-20 17:42] LABS: C & S Indicated? No; RBC Negative HPF (0-2)
[2025-07-21 18:26] LABS: PSA, Diagnostic 0.3 ng/mL (<=4.5)
== END 2025-07-20 14:58 | disposition home or self-care (01) ==
LOC: LBN 14:57
PROVIDERS: PCP Nurse Practitioner Family; Visit Provider Nurse Practitioner Family
DX: R39.198 Other difficulties with micturition (principal)
CPT/HCPCS: 81015; 84153; 87086